=== PATIENT | male | born 1930 | race Caucasian/White ===

== ENCOUNTER 2021-02-17 16:42 | Emergency (ER) | payer MEDICARE ==
[~2021-02-17 16:42] MED LIST: ROPIVACAINE 5MG/ML 20ML VIAL ONE; SODIUM CHLORIDE 0.9% 100 ML BAG ONE; fentaNYL (PF) 50 MCG/ML 5 ML AMP ONE
[2021-02-17] MEDS ORDERED: SODIUM CHLORIDE 0.9% 500 ML 500 ML IV ONE ×2 (17:19→19:12)
[2021-02-17] MEDS ORDERED: PANTOPRAZOLE 40 MG/10 ML VIAL IVP STA (17:19)
[2021-02-17] MEDS ORDERED: GLUCAGON 1 MG/ML VIAL IVP STA (17:21)
[2021-02-17] MEDS ORDERED: DIAZEPAM 5 MG/ML 2 ML INJ IVP STA (17:21)
[2021-02-17 17:53] LABS: Basophils % (A) 1 %; Eosinophils % (A) 0 %; HCT 41.5 % (39.0-53.0); HGB 13.9 gm/dL (13.0-17.5); Lymphocytes # (A) 1.1 k/uL (1.0-4.8); Lymphocytes % (A) 14 %; MCH 29.8 pg (25.0-35.0); MCHC 33.5 g/dL (31.0-37.0); MCV 88.9 fL (80.0-100.0); Mean Platelet Volume 8.7; Monocytes # (A) 0.2 k/uL (0-1.0); Monocytes % (A) 3 %; Neutrophils # (A) 6.5 k/uL (1.3-7.7); Neutrophils % (A) 83 %; Platelet Count 146 k/uL (150-450); RBC 4.66 m/uL (4.30-5.90); RDW 13.1 % (11.5-15.5); WBC 7.9 k/uL (3.8-10.6)
[2021-02-17 18:13] LABS: Albumin 3.9 g/dL (3.5-5.0); Calcium 9.5 mg/dL (8.4-10.2); Potassium 4.2 mmol/L (3.5-5.1); Total Bilirubin 0.8 mg/dL (0.2-1.3); Total Protein 7.1 g/dL (6.3-8.2)
--- NOTE | 2021-02-17 18:26 | ED ---
"General Adult HPI - General Chief complaint: ENT Stated complaint: Food stuck in throat Time Seen by Provider: 02/17/21 17:09 Source: patient, family, RN notes reviewed, old records reviewed Mode of arrival: wheelchair Limitations: no limitations - History of Present Illness Initial comments: 89-year-old male presenting with suspected esophageal foreign body. Patient had been eating pork yesterday evening around 6 PM. He had a piece of pork stuck in his throat. He was unable to drink at that time. He had a previous episode similar to this approximately 10 years ago. He reports he has never had endoscopy before. No history of cancer. Patient continues to be unable to swallow any liquids for the past 24 hours. No dyspnea. - Related Data Home Medications Medication Instructions Recorded Confirmed ALPRAZolam [Xanax] 0.5 mg PO TID 02/17/21 02/17/21 Sertraline [Zoloft] 150 mg PO DAILY 02/17/21 02/17/21 Allergies Allergy/AdvReac Type Severity Reaction Status Date / Time Iodinated Contrast Media Allergy Unknown Verified 02/17/21 18:45 Review of Systems ROS Statement: Those systems with pertinent positive or pertinent negative responses have been documented in the HPI. ROS Other: All systems not noted in ROS Statement are negative. Past Medical History Past Medical History: No Reported History Past Surgical History: No Surgical Hx Reported Smoking Status: Former smoker Past Alcohol Use History: None Reported Past Drug Use History: None Reported General Exam Limitations: no limitations General appearance: alert, in no apparent distress Head exam: Present: atraumatic, normocephalic Eye exam: Present: normal appearance, PERRL ENT exam: Present: normal exam Neck exam: Present: normal inspection. Absent: tenderness, meningismus Respiratory exam: Present: normal lung sounds bilaterally. Absent: respiratory distress, wheezes, stridor Cardiovascular Exam: Present: regular rate, normal rhythm GI/Abdominal exam: Present: soft. Absent: distended, tenderness, guarding Extremities exam: Present: normal inspection, normal capillary refill. Absent: pedal edema Neurological exam: Present: alert, oriented X3, CN II-XII intact. Absent: motor sensory deficit Psychiatric exam: Present: normal affect, normal mood Skin exam: Present: warm, dry, intact. Absent: cyanosis, diaphoretic Course Vital Signs 02/17/21 02/17/21 02/17/21 16:51 18:55 19:55 Temperature 98.7 F Pulse Rate 75 79 70 Respiratory 19 16 18 Rate Blood Pressure 130/69 173/74 175/114 O2 Sat by Pulse 92 L 93 L 96 Oximetry - Reevaluation(s) Reevaluation #1: 02/17/21 18:15 I did discuss case with Dr. Sánchez, and for general surgery, he does not perform endoscopy for esophageal foreign body. He recommended that Dr. Davidson be contac ema, I was able to contact Dr. Davidson and she is able to evaluate the patient, plan for endoscopy for esophageal foreign body at this time. Medical Decision Making - Medical Decision Making 89-year-old male with esophageal foreign body. Management is unsuccessful. I did discuss case with Dr. Davidson who is able to perform urgent endoscopy in the emergency department with successful removal of esophageal foreign body. The patient is awake and alert on reevaluation, eager for discharge. He is drinking ice tea.| - Lab Data Result diagrams: 02/17/21 17:34 02/17/21 17:34 Lab Results 02/17/21 02/17/21 Range/Units 17:34 17:34 WBC 7.9 (3.8-10.6) k/uL RBC 4.66 (4.30-5.90) m/uL Hgb 13.9 (13.0-17.5) gm/dL Hct 41.5 (39.0-53.0) % MCV 88.9 (80.0-100.0) fL MCH 29.8 (25.0-35.0) pg MCHC 33.5 (31.0-37.0) g/dL RDW 13.1 (11.5-15.5) % Plt Count 146 L (150-450) k/uL MPV 8.7 Neutrophils % 83 % Lymphocytes % 14 % Monocytes % 3 % Eosinophils % 0 % Basophils % 1 % Neutrophils # 6.5 (1.3-7.7) k/uL Lymphocytes # 1.1 (1.0-4.8) k/uL Monocytes # 0.2 (0-1.0) k/uL Eosinophils # 0.0 (0-0.7) k/uL Basophils # 0.0 (0-0.2) k/uL Sodium 139 (137-145) mmol/L Potassium 4.2 (3.5-5.1) mmol/L Chloride 105 (98-107) mmol/L Carbon Dioxide 24 (22-30) mmol/L Anion Gap 10 mmol/L BUN 32 H (9-20) mg/dL Creatinine 1.26 H (0.66-1.25) mg/dL Est GFR (CKD-EPI)AfAm 58 (>60 ml/min/1.73 sqM) Est GFR (CKD-EPI)NonAf 50 (>60 ml/min/1.73 sqM) Glucose 134 H (74-99) mg/dL Calcium 9.5 (8.4-10.2) mg/dL Total Bilirubin 0.8 (0.2-1.3) mg/dL AST 19 (17-59) U/L ALT 11 (4-49) U/L Alkaline Phosphatase 97 (38-126) U/L Total Protein 7.1 (6.3-8.2) g/dL Albumin 3.9 (3.5-5.0) g/dL Disposition Clinical Impression: Esophageal foreign body Disposition: HOME SELF-CARE Condition: Good Instructions (If sedation given, give patient instructions): Esophageal Stricture (ED), Esophageal Foreign Body (ED) Is patient prescribed a controlled substance at d/c from ED?: No Referrals: Emanuel Berry DO [Primary Care Provider] - 1-2 days Ryanne Davidson DO [Doctor of Osteopathic Medicine] - 1-2 days Time of Disposition: 20:12"
[2021-02-17] MEDS ORDERED: PROPOFOL 10 MG/ML 20 ML VIAL IV ONE ×2 (19:10)
--- NOTE | 2021-02-17 19:42 | P.PCN ---
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 He has work or some sort of food lodged in his upper neck Description of Procedure: Patient's given IV sedation. A gastroscope was then passed per mouth into the proximal esophagus. There is little secretions in the pharynx which are easily aspirated. There is a whitish food bolus stuck in the proximal esophagus which is removed in a piecemeal manner using a Michelle net. To be a stricture with inflammation there. When enough material was removed the remainder was able to be advanced into the stomach. The stomach and distal esophagus appeared unremarkable. The upper esophagus was without evidence of bleeding were the inflammation was. The scope was withdrawn. He'll be on a soft diet. He's never EGD with possible esophageal dilation in 2-4 weeks as an elective or seizure. This was discussed with the son
[2021-02-17 20:10] VITALS: RESP 18
[2021-02-17 20:50] VITALS: BP 164/83; PULSE 77; TEMP 97.8
== END 2021-02-17 20:48 | disposition home or self-care (01) ==
LOC: EC 16:42
DX: T18.128A Food in esophagus causing other injury, initial encounter (principal); Z87.891 Personal history of nicotine dependence; W45.8XXA Other foreign body or object entering through skin, initial encounter
CPT/HCPCS: 99284 ×2; 96374 ×2; 96375 ×3; 96361 ×4; 36415; 80053; 85025; 43247; J1610; J3360; J3010; J2704; C9113; J2795

== ENCOUNTER 2021-03-19 12:31 | Day surgery (SDC) | payer MEDICARE ==
[2021-03-15 14:50] VITALS: BMI 25.7
[~2021-03-19 12:31] MED LIST changes: +LACTATED RINGERS 1,000 ML IV SCH; +LIDOCAINE 1% (10MG/ML) FOR IV START INTRADERMA PRN; -ROPIVACAINE 5MG/ML 20ML VIAL ONE; -SODIUM CHLORIDE 0.9% 100 ML BAG ONE; -fentaNYL (PF) 50 MCG/ML 5 ML AMP ONE
[2021-03-19 13:00] VITALS: TEMP 97.5
--- NOTE | 2021-03-19 13:00 | P.GSHP ---
History of Present Illness H&P Date: 03/19/21 The patient is an 89-year-old man with history of recurrent dysphagia. He had had EGD with removal of foreign body from the esophagus several weeks ago. At hat time there was some ulceration. I recommended EGD to look for evidence of stricturing. - Review of Systems All systems: negative Past Medical History Past Medical History: Myocardial Infarction ([place]) Additional Past Medical History / Comment(s): recent food stuck in throat came to hospital was removed. frequent falls Last Myocardial Infarction Date:: unknown History of Any Multi-Drug Resistant Organisms: None Reported Past Surgical History: Joint Replacement Additional Past Surgical History / Comment(s): knee replacement Past Anesthesia/Blood Transfusion Reactions: Unable to Obtain Smoking Status: Former smoker Medications and Allergies Home Medications Medication Instructions Recorded Confirmed Type ALPRAZolam [Xanax] 0.5 mg PO TID 02/17/21 03/15/21 History Sertraline [Zoloft] 150 mg PO DAILY 02/17/21 03/15/21 History Allergies Allergy/AdvReac Type Severity Reaction Status Date / Time Iodinated Contrast Media Allergy Unknown Verified 03/19/21 12:58 Surgical - Exam Osteopathic Statement: *. No significant issues noted on an osteopathic structural exam other than those noted in the History and Physical/Consult. - General Age-appropriate well developed, well nourished, no distress - Respiratory normal respiratory effort - Abdomen Abdomen: soft, non tender, bowel sounds Assessment and Plan (1) Dysphasia Current Visit: Yes Status: Acute Code(s): R47.02 - DYSPHASIA SNOMED Code(s): 53846308 Plan: Patient will undergo an EGD with possible esophageal dilation if there is evidence of stricturing. The procedure, risks and complications were discussed. Questions were encouraged and answered.
[2021-03-19] MEDS ORDERED: LIDOCAINE 1% INJ 10MG/ML (20 ML MDV) ONE (13:09)
[2021-03-19] MEDS ORDERED: PROPOFOL 10 MG/ML 20 ML VIAL IV ONE (13:09)
--- NOTE | 2021-03-19 13:27 | P.PCN ---
Date of Procedure: 03/19/21 Preoperative Diagnosis: Dysphagia, history of esophageal foreign body Postoperative Diagnosis: Dysphagia, history of esophageal foreign body, upper esophageal stricture, mild erosive esophagitis Procedure(s) Performed: EGD with esophageal dilation Anesthesia: MAC Surgeon: Ryanne Davidson Pathology: none sent Condition: stable Disposition: PACU Indications for Procedure: The patient has a long history of dysphagia and had an esophageal foreign body removed several weeks ago Description of Procedure: Patient's taken to the endoscopy suite were gastroscope is passed per mouth to the third and fourth portions of the duodenum. Pharynx is unremarkable. There is a bit of a upper esophageal sphincter stricture along with a very small diverticulum. At the GE junction there is noted to be a little bit of esophagitis, the esophagitis is much improved from previous endoscopy. The stomach, pylorus and duodenum were without evidence of polyp mass lesion, other mucosal abnormality. The scope was then withdrawn into the esophagus. A balloon dilator was then passed through the biopsy port the endoscope. The balloon was allowed to traverse the upper esophageal sphincter. He's been progressively dilated to 18 mm. At that point there some linear tearing noted with no active bleeding. He tolerated the procedure without difficulty and was taken to recovery room in satisfactory condition. Plan - Discharge Summary Discharge Rx Participant: No New Discharge Prescriptions: New Omeprazole 20 mg PO QAM #90 cap No Action ALPRAZolam [Xanax] 0.5 mg PO TID Sertraline [Zoloft] 150 mg PO DAILY Discharge Medication List ALPRAZolam [Xanax] 0.5 mg PO TID 02/17/21 [History] Sertraline [Zoloft] 150 mg PO DAILY 02/17/21 [History] Omeprazole 20 mg PO QAM #90 cap 03/19/21 [Rx] Discharge Disposition: HOME SELF-CARE
[2021-03-19 14:04] VITALS: BP 155/79; PULSE 55; RESP 16
== END 2021-03-19 14:20 | disposition home or self-care (01) ==
LOC: ORWHC2ENDO 12:31
PROVIDERS: ATTEND Surgery
DX: K22.2 Esophageal obstruction (principal); K22.10 Ulcer of esophagus without bleeding; Q39.6 Congenital diverticulum of esophagus; I25.2 Old myocardial infarction; R29.6 Repeated falls; F41.9 Anxiety disorder, unspecified; F32.A Depression, unspecified; Z96.659 Presence of unspecified artificial knee joint; Z87.891 Personal history of nicotine dependence; Z79.899 Other long term (current) drug therapy; Z91.041 Radiographic dye allergy status
CPT/HCPCS: 43249; J2001; J2704; C1726

== ENCOUNTER 2021-04-28 14:57 | Inpatient (IN) | payer MEDICARE ==
[2021-04-28] MEDS ORDERED: SODIUM CHLORIDE 0.9% 1,000 ML IV STA (15:28)
--- NOTE | 2021-04-28 15:50 | ED ---
General Adult HPI - General Chief complaint: Fall Stated complaint: Fall Time Seen by Provider: 04/28/21 15:23 Source: EMS Mode of arrival: EMS Limitations: altered mental status - History of Present Illness Initial comments: 89-year-old male presents to the emergency room for a chief complaint of weakness. Patient has been weak for the past several days. States that he had a fall a few days ago because of this weakness. Isn't able to walk at home. He lives with a caregiver. Patient has no other complaints at this time including shortness of breath, chest pain, abdominal pain, nausea or vomiting, headache, or visual changes. - Related Data Home Medications Medication Instructions Recorded Confirmed ALPRAZolam [Xanax] 0.5 mg PO TID 02/17/21 03/19/21 Sertraline [Zoloft] 150 mg PO DAILY 02/17/21 03/19/21 Previous Rx's Medication Instructions Recorded Omeprazole 20 mg PO QAM #90 cap 03/19/21 Allergies Allergy/AdvReac Type Severity Reaction Status Date / Time Iodinated Contrast Media Allergy Unknown Verified 04/28/21 15:09 Review of Systems ROS Statement: Those systems with pertinent positive or pertinent negative responses have been documented in the HPI. ROS Other: All systems not noted in ROS Statement are negative. Past Medical History Past Medical History: Myocardial Infarction ([place]) Additional Past Medical History / Comment(s): recent food stuck in throat came to hospital was removed. frequent falls Last Myocardial Infarction Date:: unknown History of Any Multi-Drug Resistant Organisms: None Reported Past Surgical History: Joint Replacement Additional Past Surgical History / Comment(s): knee replacement Past Anesthesia/Blood Transfusion Reactions: Unable to Obtain Past Psychological History: Anxiety, Depression Smoking Status: Former smoker Past Alcohol Use History: None Reported Past Drug Use History: None Reported General Exam Limitations: altered mental status General appearance: alert, in no apparent distress Head exam: Present: atraumatic Eye exam: Present: normal appearance, PERRL, EOMI. Absent: scleral icterus, conjunctival injection, nystagmus ENT exam: Present: normal exam, mucous membranes moist Neck exam: Present: normal inspection, full ROM. Absent: tenderness Respiratory exam: Present: normal lung sounds bilaterally. Absent: respiratory distress, wheezes Cardiovascular Exam: Present: regular rate, normal rhythm, normal heart sounds GI/Abdominal exam: Present: soft, normal bowel sounds. Absent: distended, tenderness Rectal exam: Present: other (Patient has bedsores noted to his bottom.) Neurological exam: Present: alert Course Vital Signs 04/28/21 15:09 Temperature 99.2 F Pulse Rate 83 Respiratory 20 Rate Blood Pressure 117/72 O2 Sat by Pulse 95 Oximetry EKG Findings - EKG Comments: EKG Findings:: Sinus rhythm, ventricular rate 81, UT interval 248, QTC 441 Medical Decision Making - Medical Decision Making Vitals are stable. Patient is well appearing although somewhat confused. CBC is unremarkable. CMP does show significant dehydration. According to family patient has been refusing to eat and drink. Urinalysis does show evidence of infection, treated with Rocephin.. EKG does not show any evidence of ST elevation however troponin is elevated at 0.26. Patient is not complaining of any chest pain at this time. Patient was given aspirin. We will trend his troponin however given his recent fall and no chest pain or ST elevation we will not start heparin. Patient will be admitted to medicine. - Lab Data Result diagrams: 04/28/21 15:54 04/28/21 15:54 Lab Results 04/28/21 04/28/21 04/28/21 Range/Units 15:54 15:54 15:54 WBC 3.1 L (3.8-10.6) k/uL RBC 4.97 (4.30-5.90) m/uL Hgb 14.7 (13.0-17.5) gm/dL Hct 43.5 (39.0-53.0) % MCV 87.6 (80.0-100.0) fL MCH 29.7 (25.0-35.0) pg MCHC 33.9 (31.0-37.0) g/dL RDW 14.3 (11.5-15.5) % Plt Count 115 L (150-450) k/uL MPV 8.8 Neutrophils % 55 % Lymphocytes % 36 % Monocytes % 6 % Eosinophils % 0 % Basophils % 0 % Neutrophils # 1.7 (1.3-7.7) k/uL Lymphocytes # 1.1 (1.0-4.8) k/uL Monocytes # 0.2 (0-1.0) k/uL Eosinophils # 0.0 (0-0.7) k/uL Basophils # 0.0 (0-0.2) k/uL PT 12.0 (9.0-12.0) sec INR 1.1 (<1.2) APTT 34.1 H (22.0-30.0) sec Sodium (137-145) mmol/L Potassium (3.5-5.1) mmol/L Chloride (98-107) mmol/L Carbon Dioxide (22-30) mmol/L Anion Gap mmol/L BUN (9-20) mg/dL Creatinine (0.66-1.25) mg/dL Est GFR (CKD-EPI)AfAm (>60 ml/min/1.73 sqM) Est GFR (CKD-EPI)NonAf (>60 ml/min/1.73 sqM) Glucose (74-99) mg/dL Plasma Lactic Acid Familia (0.7-2.0) mmol/L Calcium (8.4-10.2) mg/dL Magnesium (1.6-2.3) mg/dL Total Bilirubin (0.2-1.3) mg/dL AST (17-59) U/L ALT (4-49) U/L Alkaline Phosphatase (38-126) U/L Troponin I (0.000-0.034) ng/mL Total Protein (6.3-8.2) g/dL Albumin (3.5-5.0) g/dL Urine Color Yellow Urine Appearance Clear (Clear) Urine pH 6.0 (5.0-8.0) Ur Specific [place] 1.015 (1.001-1.035) Urine Protein Trace H (Negative) Urine Glucose (UA) Negative (Negative) Urine Ketones Negative (Negative) Urine Blood Moderate H (Negative) Urine Nitrite Positive (Negative) Urine Bilirubin Negative (Negative) Urine Urobilinogen <2.0 (<2.0) mg/dL Ur Leukocyte Esterase Trace H (Negative) Urine RBC 8 H (0-5) /hpf Urine WBC 17 H (0-5) /hpf Urine Bacteria Rare H (None) /hpf Hyaline Casts 3 H (0-2) /lpf 04/28/21 04/28/21 04/28/21 Range/Units 15:54 15:54 15:54 WBC (3.8-10.6) k/uL RBC (4.30-5.90) m/uL Hgb (13.0-17.5) gm/dL Hct (39.0-53.0) % MCV (80.0-100.0) fL MCH (25.0-35.0) pg MCHC (31.0-37.0) g/dL RDW (11.5-15.5) % Plt Count (150-450) k/uL MPV Neutrophils % % Lymphocytes % % Monocytes % % Eosinophils % % Basophils % % Neutrophils # (1.3-7.7) k/uL Lymphocytes # (1.0-4.8) k/uL Monocytes # (0-1.0) k/uL Eosinophils # (0-0.7) k/uL Basophils # (0-0.2) k/uL PT (9.0-12.0) sec INR (<1.2) APTT (22.0-30.0) sec Sodium 143 (137-145) mmol/L Potassium 3.4 L (3.5-5.1) mmol/L Chloride 107 (98-107) mmol/L Carbon Dioxide 25 (22-30) mmol/L Anion Gap 11 mmol/L BUN 63 H (9-20) mg/dL Creatinine 1.61 H (0.66-1.25) mg/dL Est GFR (CKD-EPI)AfAm 43 (>60 ml/min/1.73 sqM) Est GFR (CKD-EPI)NonAf 38 (>60 ml/min/1.73 sqM) Glucose 117 H (74-99) mg/dL Plasma Lactic Acid Familia 1.8 (0.7-2.0) mmol/L Calcium 9.1 (8.4-10.2) mg/dL Magnesium 2.1 (1.6-2.3) mg/dL Total Bilirubin 0.5 (0.2-1.3) mg/dL AST 84 H (17-59) U/L ALT 32 (4-49) U/L Alkaline Phosphatase 80 (38-126) U/L Troponin I 0.206 H* (0.000-0.034) ng/mL Total Protein 6.9 (6.3-8.2) g/dL Albumin 3.7 (3.5-5.0) g/dL Urine Color Urine Appearance (Clear) Urine pH (5.0-8.0) Ur Specific [place] (1.001-1.035) Urine Protein (Negative) Urine Glucose (UA) (Negative) Urine Ketones (Negative) Urine Blood (Negative) Urine Nitrite (Negative) Urine Bilirubin (Negative) Urine Urobilinogen (<2.0) mg/dL Ur Leukocyte Esterase (Negative) Urine RBC (0-5) /hpf Urine WBC (0-5) /hpf Urine Bacteria (None) /hpf Hyaline Casts (0-2) /lpf Disposition Clinical Impression: Weakness, Failure to thrive, Elevated troponin, Bed sore, Unable to ambulate, Dehydration Disposition: ADMITTED IP TO THIS HOSP Is patient prescribed a controlled substance at d/c from ED?: No Referrals: Emanuel Berry DO [Primary Care Provider] - 1-2 days Time of Disposition: 17:09
[2021-04-28 16:02] LABS: Basophils % (A) 0 %; Eosinophils % (A) 0 %; HCT 43.5 % (39.0-53.0); HGB 14.7 gm/dL (13.0-17.5); Lymphocytes # (A) 1.1 k/uL (1.0-4.8); Lymphocytes % (A) 36 %; MCH 29.7 pg (25.0-35.0); MCHC 33.9 g/dL (31.0-37.0); MCV 87.6 fL (80.0-100.0); Mean Platelet Volume 8.8; Monocytes # (A) 0.2 k/uL (0-1.0); Monocytes % (A) 6 %; Neutrophils # (A) 1.7 k/uL (1.3-7.7); Neutrophils % (A) 55 %; Platelet Count 115 k/uL (150-450); RBC 4.97 m/uL (4.30-5.90); RDW 14.3 % (11.5-15.5); WBC 3.1 k/uL (3.8-10.6)
[2021-04-28 16:05] LABS: Appearance,Urine Clear (Clear); Bacteria,Urine Rare /hpf; Bilirubin,Urine Negative (Negative); Blood,Urine Moderate (Negative); Color,Urine Yellow; Glucose,Urine (UA) Negative (Negative); Hyaline Casts,Urine 3 /lpf (0-2); Ketones,Urine Negative (Negative); Leukocyte Esterase,Urine Trace (Negative); Nitrite,Urine Positive (Negative); Protein,Urine Trace (Negative); RBC,Urine 8 /hpf (0-5); Specific Gravity,Urine 1.015 (1.001-1.035); Urobilinogen,Urine <2.0 mg/dL (<2.0); WBC,Urine 17 /hpf (0-5)
[2021-04-28 16:20] LABS: Albumin 3.7 g/dL (3.5-5.0); Calcium 9.1 mg/dL (8.4-10.2); Magnesium 2.1 mg/dL (1.6-2.3); Potassium 3.4 mmol/L (3.5-5.1); Total Bilirubin 0.5 mg/dL (0.2-1.3); Total Protein 6.9 g/dL (6.3-8.2)
[2021-04-28 16:23] LABS: INR 1.1 (<1.2); Partial Thromboplastin Time 34.1 sec (22.0-30.0)
--- NOTE | 2021-04-28 16:33 | XR ---
EXAMINATION TYPE: XR pelvis AP view DATE OF EXAM: 04/28/2021 COMPARISON: NONE HISTORY: Pain TECHNIQUE: 2 view FINDINGS: Pelvic ring is intact. Proximal femurs and hip joints are intact but sacroiliac joints are intact. IMPRESSION: Negative pelvis x-ray exam.
--- NOTE | 2021-04-28 16:35 | XR ---
EXAMINATION TYPE: XR chest 2V DATE OF EXAM: 04/28/2021 COMPARISON: NONE HISTORY: Weakness TECHNIQUE: 2 views FINDINGS: Heart is normal. Thoracic aorta is atheromatous. Lungs are clear of consolidation. There ar e no hilar masses. There are chest leads. There is no pleural effusion. Bony thorax is intact. IMPRESSION: Atheromatous aorta. No active cardiopulmonary disease.
[2021-04-28] MEDS ORDERED: ASPIRIN 81 MG PO STA (17:00)
[2021-04-28] MEDS ORDERED: NITROGLYCERIN SL TABS 0.4 MG TAB SUBLINGUAL PRN (17:14)
[2021-04-28] MEDS ORDERED: cefTRIAXone IN SWFI 1,000 MG/10 ML SYRINGE IVP STA (17:18)
[2021-04-28] MEDS ORDERED: ACETAMINOPHEN TAB 325 MG TAB PO PRN (17:19)
[2021-04-28 19:00] LABS: C Reactive Protein 4.1 mg/dL (<1.0)
--- NOTE | 2021-04-28 19:04 | P.HPIM ---
History of Present Illness H&P Date: 04/28/21 Chief Complaint: Fall/weakness 89-year-old male presents to the emergency room for a chief complaint of weakness. Patient has been weak for the past several days. States that he had a fall a few days ago because of this weakness. Isn't able to walk at home. He lives with a caregiver. Patient has no other complaints at this time including shortness of breath, chest pain, abdominal pain, nausea or vomiting, headache, or visual changes. CBC is unremarkable. CMP does show significant dehydration. According to family patient has been refusing to eat and drink. Urinalysis does show evidence of infection, treated with Rocephin.. EKG does not show any evidence of ST elevation however troponin is elevated at 0.26. Review of Systems REVIEW OF SYSTEMS: CONSTITUTIONAL: No fever, no malaise, no fatigue. HEENT: No recent visual problems or hearing problems. Denied any sore throat. CARDIOVASCULAR: No chest pain, orthopnea, PND, no palpitations, no syncope. PULMONARY: No shortness of breath, no cough, no hemoptysis. GASTROINTESTINAL: No diarrhea, no nausea, no vomiting, no abdominal pain. NEUROLOGICAL: No headaches, no weakness, no numbness. HEMATOLOGICAL: Denies any bleeding or petechiae. GENITOURINARY: Denies any burning micturition, frequency, or urgency. MUSCULOSKELETAL/RHEUMATOLOGICAL: Denies any joint pain, swelling, or any muscle pain. ENDOCRINE: Denies any polyuria or polydipsia. The rest of the 14-point review of systems is negative. Past Medical History Past Medical History: Myocardial Infarction ([place]) Additional Past Medical History / Comment(s): recent food stuck in throat came to hospital was removed. frequent falls Last Myocardial Infarction Date:: unknown History of Any Multi-Drug Resistant Organisms: None Reported Past Surgical History: Joint Replacement Additional Past Surgical History / Comment(s): knee replacement Past Anesthesia/Blood Transfusion Reactions: Unable to Obtain Past Psychological History: Anxiety, Depression Smoking Status: Former smoker Past Alcohol Use History: None Reported Past Drug Use History: None Reported Medications and Allergies Home Medications Medication Instructions Recorded Confirmed Type ALPRAZolam [Xanax] 0.5 mg PO TID 02/17/21 03/19/21 History Sertraline [Zoloft] 150 mg PO DAILY 02/17/21 03/19/21 History Omeprazole 20 mg PO QAM #90 cap 03/19/21 Rx Allergies Allergy/AdvReac Type Severity Reaction Status Date / Time Iodinated Contrast Media Allergy Unknown Verified 04/28/21 15:09 Physical Exam Vitals: Vital Signs Temp Pulse Resp BP Pulse Ox 04/28/21 18:00 89 20 154/82 92 L 04/28/21 15:09 99.2 F 83 20 117/72 95 Intake and Output 04/28/21 04/28/21 04/28/21 06:59 14:59 22:59 Other: Weight 49.895 kg PHYSICAL EXAMINATION: GENERAL: The patient is alert and oriented x3, not in any acute distress. Well developed, well nourished. HEENT: Pupils are round and equally reacting to light. EOMI. No scleral icterus. No conjunctival pallor. Normocephalic, atraumatic. No pharyngeal erythema. No thyromegaly. CARDIOVASCULAR: S1 and S2 present. No murmurs, rubs, or gallops. PULMONARY: Chest is clear to auscultation, no wheezing or crackles. ABDOMEN: Soft, nontender, nondistended, normoactive bowel sounds. No palpable organomegaly. MUSCULOSKELETAL: No joint swelling or deformity. EXTREMITIES: No cyanosis, clubbing, or pedal edema. NEUROLOGICAL: Gross neurological examination did not reveal any focal deficits. SKIN: No rashes. Results CBC & Chem 7: 04/28/21 15:54 04/28/21 15:54 Labs: Abnormal Lab Results - Last 24 Hours (Table) 04/28/21 04/28/21 04/28/21 Range/Units 15:54 15:54 15:54 WBC 3.1 L (3.8-10.6) k/uL Plt Count 115 L (150-450) k/uL APTT 34.1 H (22.0-30.0) sec Potassium (3.5-5.1) mmol/L BUN (9-20) mg/dL Creatinine (0.66-1.25) mg/dL Glucose (74-99) mg/dL AST (17-59) U/L Troponin I (0.000-0.034) ng/mL Urine Protein Trace H (Negative) Urine Blood Moderate H (Negative) Ur Leukocyte Esterase Trace H (Negative) Urine RBC 8 H (0-5) /hpf Urine WBC 17 H (0-5) /hpf Urine Bacteria Rare H (None) /hpf Hyaline Casts 3 H (0-2) /lpf Coronavirus (PCR) (Not Detectd) 04/28/21 04/28/21 04/28/21 Range/Units 15:54 15:54 16:50 WBC (3.8-10.6) k/uL Plt Count (150-450) k/uL APTT (22.0-30.0) sec Potassium 3.4 L (3.5-5.1) mmol/L BUN 63 H (9-20) mg/dL Creatinine 1.61 H (0.66-1.25) mg/dL Glucose 117 H (74-99) mg/dL AST 84 H (17-59) U/L Troponin I 0.206 H* (0.000-0.034) ng/mL Urine Protein (Negative) Urine Blood (Negative) Ur Leukocyte Esterase (Negative) Urine RBC (0-5) /hpf Urine WBC (0-5) /hpf Urine Bacteria (None) /hpf Hyaline Casts (0-2) /lpf Coronavirus (PCR) Detected A (Not Detectd) Assessment and Plan Assessment: 1. Elevated troponin rule out acute coronary syndrome; monitor EKG and trend troponin; recommending 2-D echo; consult cardiology 2. Acute renal injury/dehydration; start patient on IV fluids; we will monitor strict CELIA's, daily weights, renal function and electrolytes; avoid nephrotoxins and hypotension 3. Hypokalemia/electrolyte imbalance; supplemented in ED; monitor electrolytes and make further supplementation 4. UTI; Rocephin 1 g IV daily; monitor CBC, CRP and pro-calcitonin; monitor final urine culture and adjust medications as needed 5. Weakness/adult failure to thrive; inability to ambulate - We will consult PT/OT DVT prophylaxis; SCDs/subcu heparin CODE STATUS; full code
[2021-04-28] MEDS: SERTRALINE 50 MG TAB PO SCH (20:15)
[2021-04-28] MEDS: ALPRAZolam 0.5 MG TAB PO SCH (20:15)
[2021-04-29] MEDS ORDERED: cefTRIAXone IN SWFI 1,000 MG/10 ML SYRINGE IVP SCH (09:00)
[2021-04-29] MEDS: ALPRAZolam 0.5 MG TAB PO SCH ×3 (09:14→21:52)
[2021-04-29] MEDS: SERTRALINE 50 MG TAB PO SCH (09:14)
[2021-04-29] MEDS: PANTOPRAZOLE 40 MG TABLET PO SCH (09:15)
[2021-04-29] MEDS: ASPIRIN 325 MG TAB PO SCH (09:15)
[2021-04-29 11:18] LABS: LDL Cholesterol,Calculated 65.3 mg/dL (0.0-131.0)
--- NOTE | 2021-04-29 14:55 | P.CRDCN ---
History of Present Illness Consult date: 04/29/21 History of present illness: Patient is an 89-year-old male with a known history of coronary artery disease myocardial infarction and hyperlipidemia. He does not follow with a environmental sciences professor in the office. We are asked to see him for elevated troponins. Patient was brought in to the hospital by his family, he lives with his son. Patient had increased falls and increased confusion. Patient was found to have a positive urinary tract infection. Patient's troponins positive 3. Elevated troponins are likely related to acute renal failure. Patient has no EKG del angel es. He does have a prior history of an inferior wall infarct. No concern for myocardial infarction Patient is more alert and orientated today and able to answer questions. He denies chest pain, palpitations, dyspnea, dizziness. start Imdur 30 mg daily. We'll start Lopressor 25 twice a day and will obtain an echocardiogram on the patient Review of Systems REVIEW OF SYSTEMS At the time of my exam: CONSTITUTIONAL: Denies fever or chills. EYES: Negative for vision changes ENT: Negative for hearing loss CARDIOVASCULAR: Denies chest pain, shortness of breath, diaphoresis, orthopnea, PND or palpitations. VASCULAR: Denies edema RESPIRATORY: Denies cough. GASTROINTESTINAL: Denies abdominal pain, diarrhea, constipation, nausea or vomiting. MUSCULOSKELETAL: Denies myalgias. NEUROLOGIC: Denies numbness, tingling, headache or weakness. ENDOCRINE: Denies fatigue, weight change, polydipsia or polyurina. GENITOURINARY: Denies burning, hematuria or urgency with micturation. HEMATOLOGIC: Denies history of anemia or bleeding. DERMATOLOGY: Denies rash or skin sores PSYCH: Negative for depression or hallucinations. Past Medical History Past Medical History: Cancer, Hearing Disorder / Deafness, Hyperlipidemia, Myocardial Infarction (CT), Osteoarthritis (OA), Prostate Disorder Additional Past Medical History / Comment(s): recent food stuck in throat came to hospital was removed. frequent falls, prostate cancer Last Myocardial Infarction Date:: unknown History of Any Multi-Drug Resistant Organisms: None Reported Past Surgical History: Joint Replacement Additional Past Surgical History / Comment(s): knee replacement Past Anesthesia/Blood Transfusion Reactions: Unable to Obtain Past Psychological History: Anxiety, Depression Smoking Status: Former smoker Past Alcohol Use History: None Reported Past Drug Use History: None Reported Medications and Allergies Home Medications Medication Instructions Recorded Confirmed Type ALPRAZolam [Xanax] 0.5 mg PO TID 02/17/21 04/28/21 History Sertraline [Zoloft] 150 mg PO DAILY 02/17/21 04/28/21 History Omeprazole 20 mg PO DAILY 04/28/21 04/28/21 History Allergies Allergy/AdvReac Type Severity Reaction Status Date / Time Iodinated Contrast Media Allergy Unknown Verified 04/28/21 18:59 Physical Exam Vitals: Vital Signs Temp Pulse Pulse Resp BP BP BP 04/29/21 12:19 97.8 F 74 17 121/62 04/29/21 09:29 97.9 F 74 17 138/68 04/29/21 04:00 72 18 127/64 04/29/21 00:00 68 18 121/60 04/28/21 20:00 97.8 F 79 18 133/69 04/28/21 18:00 89 20 154/82 04/28/21 15:09 99.2 F 83 20 117/72 Pulse Ox 04/29/21 12:19 92 L 04/29/21 09:29 95 04/29/21 04:00 92 L 04/29/21 00:00 96 04/28/21 20:00 94 L 04/28/21 18:00 92 L 04/28/21 15:09 95 Intake and Output 04/28/21 04/29/21 04/29/21 22:59 06:59 14:59 Intake Total 970 485 200 Output Total 1400 Balance 970 485 -1200 Intake: Oral 970 485 200 Output: Urine 1400 Straight 700 Other: Voiding Method Diaper Diaper Diaper Incontinent Incontinent Incontinent Weight 49.895 kg PHYSICAL EXAMINATION VITAL SIGNS: Reviewed CONSTITUTIONAL: No apparent distress. HEENT: Head is normocephalic. Pupils are equal, round. Sclerae anicteric. Mucous membranes of the mouth are moist. NECK: No JVD. No carotid bruit. RESPIRATORY: Lungs are clear to auscultation. No chest wall tenderness is noted on palpation or with deep breathing. CARDIAC: Regular rate and rhythm. S1, S2 heard. No murmurs, gallops or rub. ABDOMEN: Soft, nontender. EXTREMITIES: 2+ peripheral pulses, no lower extremity edema and no calf tenderness. NEUROLOGIC EXAMINATION: Patient is awake, alert and oriented x3. INTEGUMENTARY: Warm, absent for rashes or sores PSYCH: Negative for depression or hallucinations, mood appropriate. Results 04/28/21 15:54 04/28/21 15:54 Cardiac Enzymes 04/28/21 04/28/21 04/28/21 Range/Units 15:54 15:54 15:54 AST 84 H (17-59) U/L Lactate Dehydrogenase 591 (313-618) U/L Troponin I 0.206 H* (0.000-0.034) ng/mL 04/28/21 04/28/21 Range/Units 20:39 23:45 AST (17-59) U/L Lactate Dehydrogenase (313-618) U/L Troponin I 0.183 H* 0.193 H* (0.000-0.034) ng/mL Coagulation 04/28/21 Range/Units 15:54 PT 12.0 (9.0-12.0) sec APTT 34.1 H (22.0-30.0) sec Lipids 04/29/21 Range/Units 07:57 Triglycerides 131.00 (0.00-149.00) mg/dL Cholesterol 122.00 (0.00-200.00) mg/dL HDL Cholesterol 30.50 L (40.00-60.00) mg/dL Cholesterol/HDL Ratio 4.00 Ratio CBC 04/28/21 Range/Units 15:54 WBC 3.1 L (3.8-10.6) k/uL RBC 4.97 (4.30-5.90) m/uL Hgb 14.7 (13.0-17.5) gm/dL Hct 43.5 (39.0-53.0) % Plt Count 115 L (150-450) k/uL Comprehensive Metabolic Panel 04/28/21 Range/Units 15:54 Sodium 143 (137-145) mmol/L Potassium 3.4 L (3.5-5.1) mmol/L Chloride 107 (98-107) mmol/L Carbon Dioxide 25 (22-30) mmol/L BUN 63 H (9-20) mg/dL Creatinine 1.61 H (0.66-1.25) mg/dL Glucose 117 H (74-99) mg/dL Calcium 9.1 (8.4-10.2) mg/dL AST 84 H (17-59) U/L ALT 32 (4-49) U/L Alkaline Phosphatase 80 (38-126) U/L Total Protein 6.9 (6.3-8.2) g/dL Albumin 3.7 (3.5-5.0) g/dL Current Medications Generic Name Dose Route Start Last Admin Trade Name Freq PRN Reason Stop Dose Admin Acetaminophen 650 mg 04/28/21 17:19 Acetaminophen Tab 325 Mg Tab PO Q4HR PRN Fever>101 Alprazolam 0.5 mg 04/28/21 22:00 04/29/21 09:14 Alprazolam 0.5 Mg Tab PO 0.5 mg TID SIERRA Administration Aspirin 325 mg 04/29/21 09:00 04/29/21 09:15 Aspirin 325 Mg Tab PO 325 mg DAILY SIERRA Administration Ceftriaxone Sodium 1 gm/ 50 mls @ 100 mls/hr 04/29/21 09:00 04/29/21 09:15 Sodium Chloride IVPB 100 mls/hr Q24HR SIERRA Administration Nitroglycerin 0.4 mg 04/28/21 17:14 Nitroglycerin Sl Tabs 0.4 Mg Tab SUBLINGUAL Q5M PRN Chest Pain Pantoprazole Sodium 40 mg 04/29/21 09:00 04/29/21 09:15 Pantoprazole 40 Mg Tablet PO 40 mg DAILY SIERRA Administration Sertraline HCl 150 mg 04/28/21 20:00 04/29/21 09:14 Sertraline 50 Mg Tab PO 150 mg DAILY SIERRA Administration Intake and Output 04/28/21 04/29/21 04/29/21 22:59 06:59 14:59 Intake Total 970 485 200 Output Total 1400 Balance 970 485 -1200 Intake: Oral 970 485 200 Output: Urine 1400 Straight 700 Other: Voiding Method Diaper Diaper Diaper Incontinent Incontinent Incontinent Weight 49.895 kg 04/28/21 15:54 04/28/21 15:54 Assessment and Plan Assessment: Positive troponins likely related to acute renal failure Covid infection Acute renal failure likely related to dehydration History of coronary artery disease Urinary tract infection Increase confusion Failure to thrive Plan: obtain an echocardiogram and review Start Imdur 30 mg daily Start Lopressor 25 mg twice a day Continue with cardiac monitoring Continue with all other current cardiac medications Further recommendations based on clinical course The above impression and plan of care have been discussed and directed by the signing physician. Halina De La Rosa, nurse practitioner, acting as scribe for signing physician.
[2021-04-29] MEDS: ISOSORBIDE MONONITRATE ER 30 MG TAB.ER.24H PO SCH (16:27)
[2021-04-29] MEDS: ENOXAPARIN 30 MG/0.3 ML SYRINGE SQ SCH (16:27)
[2021-04-29] MEDS: ASCORBIC ACID 500 MG TAB PO SCH (16:27)
[2021-04-29] MEDS: CHOLECALCIFEROL 25 MCG (1000 IU) TABLET PO SCH (16:28)
[2021-04-29] MEDS: METOPROLOL TARTRATE 25 MG TAB PO SCH (20:46)
[2021-04-30 09:44] LABS: Basophils % (A) 0 %; Eosinophils % (A) 0 %; HGB 12.8 gm/dL (13.0-17.5); Lymphocytes # (A) 1.1 k/uL (1.0-4.8); Lymphocytes % (A) 37 %; MCH 29.8 pg (25.0-35.0); MCHC 32.8 g/dL (31.0-37.0); MCV 90.8 fL (80.0-100.0); Mean Platelet Volume 8.4; Monocytes # (A) 0.1 k/uL (0-1.0); Monocytes % (A) 3 %; Neutrophils # (A) 1.7 k/uL (1.3-7.7); Neutrophils % (A) 57 %; RDW 15.2 % (11.5-15.5)
[2021-04-30 10:03] LABS: Calcium 8.5 mg/dL (8.4-10.2); Potassium 3.8 mmol/L (3.5-5.1)
[2021-04-30 10:16] LABS: Platelet Count 80 k/uL (150-450)
[2021-04-30 10:17] LABS: RBC Morphology Normal
[2021-04-30] MEDS: CHOLECALCIFEROL 25 MCG (1000 IU) TABLET PO SCH (10:43)
[2021-04-30] MEDS: ALPRAZolam 0.5 MG TAB PO SCH ×3 (10:44→20:23)
[2021-04-30] MEDS: SERTRALINE 50 MG TAB PO SCH (10:44)
[2021-04-30] MEDS: ASCORBIC ACID 500 MG TAB PO SCH ×2 (10:44→20:23)
[2021-04-30] MEDS: PANTOPRAZOLE 40 MG TABLET PO SCH (10:44)
[2021-04-30] MEDS: ISOSORBIDE MONONITRATE ER 30 MG TAB.ER.24H PO SCH (10:44)
[2021-04-30] MEDS: METOPROLOL TARTRATE 25 MG TAB PO SCH ×2 (10:44→20:23)
[2021-04-30] MEDS: ENOXAPARIN 30 MG/0.3 ML SYRINGE SQ SCH (10:45)
[2021-04-30] MEDS: ZINC SULFATE 220 MG CAP PO SCH (10:48)
[2021-04-30] MEDS: TAMSULOSIN 0.4 MG CAP.ER.24H PO SCH (10:48)
--- NOTE | 2021-04-30 11:51 | P.CONS ---
History of Present Illness - Reason for Consult Consult date: 04/30/21 wound care - History of Present Illness This is an 89-year-old patient with a unstageable pressure ulcer to the coccyx been seen on 3 . Patient states that the ulceration has been there for quite a few months. Every time he turns it feels like the area is ripping open. Patient does have some excoriation to the site. The ulceration is measuring approximately 6 6 x 4 x 0.1 cm with eschar noted. Patient would benefit from debridement in an outpatient setting. Review Of Systems: Constitutional: No fever, no chills, no night sweats. No weight change. No weakness, fatigue or lethargy. No daytime sleepiness. Integumentary:reports wounds, no lesions. No rash or pruritus. No unusual bruising. No change in hair or nails. Physical exam: General Appearance: Alert, cooperative, no distress, appears stated age. Skin: See HPI all other Skin color, texture, tugor normal, no rashes or lesions. Neurologic: Alert oriented x3 Assessment: 1. Unstageable pressure ulcer coccyx Plan: 1. Apply honey alginate, saline moistened gauze and sacral border foam. Turn patient every 2 hours. When patient is sitting please utilize a air-filled cushion. Patient would benefit from outpatient advance wound care. We will be happy to see him in the wound care center upon discharge. Thank you for the consultation any questions contact the wound care center DNP note has been reviewed and discussed with Dr. Woo and the impression and plan of care has been directed as dictated. Past Medical History Past Medical History: Cancer, Hearing Disorder / Deafness, Hyperlipidemia, Myocardial Infarction (MS), Osteoarthritis (OA), Prostate Disorder Additional Past Medical History / Comment(s): recent food stuck in throat came to hospital was removed. frequent falls, prostate cancer Last Myocardial Infarction Date:: unknown History of Any Multi-Drug Resistant Organisms: None Reported Past Surgical History: Joint Replacement Additional Past Surgical History / Comment(s): knee replacement Past Anesthesia/Blood Transfusion Reactions: Unable to Obtain Past Psychological History: Anxiety, Depression Smoking Status: Former smoker Past Alcohol Use History: None Reported Past Drug Use History: None Reported Medications and Allergies Home Medications Medication Instructions Recorded Confirmed Type ALPRAZolam [Xanax] 0.5 mg PO TID 02/17/21 04/28/21 History Sertraline [Zoloft] 150 mg PO DAILY 02/17/21 04/28/21 History Omeprazole 20 mg PO DAILY 04/28/21 04/28/21 History Allergies Allergy/AdvReac Type Severity Reaction Status Date / Time Iodinated Contrast Media Allergy Unknown Verified 04/28/21 18:59 Physical Exam Vitals: Vital Signs Temp Pulse Resp BP Pulse Ox 04/30/21 08:49 97.5 F L 67 18 119/59 94 L 04/30/21 08:25 96 04/30/21 04:00 97.8 F 75 16 123/68 95 04/29/21 23:30 98.0 F 74 16 116/62 93 L 04/29/21 20:00 98.1 F 74 16 128/65 94 L 04/29/21 17:15 96 04/29/21 17:11 97.9 F 75 15 136/69 96 04/29/21 12:19 97.8 F 74 17 121/62 92 L Intake and Output 04/29/21 04/30/21 04/30/21 22:59 06:59 14:59 Intake Total 10 Output Total 450 420 Balance -440 -420 Intake: IV 10 Invasive Line 1 10 Output: Urine 450 420 Straight 450 Other: Voiding Method Indwelling Catheter Indwelling Catheter Indwelling Catheter Results CBC & Chem 7: 04/30/21 09:04 04/30/21 09:04 Labs: Abnormal Lab Results - Last 24 Hours (Table) 04/30/21 04/30/21 Range/Units 09:04 09:04 WBC 3.0 L (3.8-10.6) k/uL Hgb 12.8 L (13.0-17.5) gm/dL Plt Count 80 L (150-450) k/uL Sodium 146 H (137-145) mmol/L Chloride 115 H (98-107) mmol/L BUN 34 H (9-20) mg/dL Glucose 110 H (74-99) mg/dL Microbiology - Last 24 Hours (Table) 04/28/21 15:54 Urine Culture - Final Urine,Catheterized 04/28/21 17:35 Blood Culture - Preliminary Blood No Growth after 24 hours 04/28/21 17:20 Blood Culture - Preliminary Blood No Growth after 24 hours Assessment and Plan (1) Unstageable pressure ulcer of buttock Current Visit: Yes Status: Acute Code(s): L89.300 - PRESSURE ULCER OF UNSPECIFIED BUTTOCK, UNSTAGEABLE SNOMED Code(s): 772030612
--- NOTE | 2021-04-30 12:10 | P.PN ---
Subjective Progress Note Date: 04/30/21 CHIEF COMPLAINT: abnormal troponins HISTORY OF PRESENT ILLNESS: 04/29/2021 Patient is an 89-year-old male with a known history of coronary artery disease myocardial infarction and hyperlipidemia. He does not follow with a cushion assembler in the office. We are asked to see him for elevated troponins. Patient was brought in to the hospital by his family, he lives with his son. Patient had increased falls and increased confusion. Patient was found to have a positive urinary tract infection. Patient's troponins positive 3. Elevated troponins are likely related to acute renal failure. Patient has no EKG changes. He does have a prior history of an inferior wall infarct. No concern for myocardial infarction Patient is more alert and orientated today and able to answer questions. He denies chest pain, palpitations, dyspnea, dizziness. start Imdur 30 mg daily. We'll start Lopressor 25 twice a day and will obtain an echocardiogram on the patient PHYSICAL EXAM: Thorough physical exam not completed secondary to limited evaluation/examination due to Covid19 ASSESSMENT: Covid 19 Acute renal failure Abnormal troponins, secondary to SEAN, not suggestive of ACS Urinary tract infection Altered mental status Failure to thrive PLAN: 2D echo ordered. Await results Decrease aspirin to 81mg daily Continue additional cardiac medications Further recommendations pending patient course Nurse practitioner note has been reviewed by physician. Signing provider agrees with the documented findings, assessment, and plan of care. Objective - Vital Signs Vital signs: Vital Signs Temp 98 F 04/30/21 12:01 Pulse 61 04/30/21 12:01 Resp 17 04/30/21 12:01 BP 108/57 04/30/21 12:01 Pulse Ox 92 L 04/30/21 12:01 Intake & Output 04/29/21 04/30/21 04/30/21 18:59 06:59 18:59 Intake Total 200 10 Output Total 1850 420 420 Balance -1650 -410 -420 Intake: IV 10 Invasive Line 1 10 Oral 200 Output: Urine 1850 420 420 Straight 1150 Other: Voiding Method Diaper Indwelling Catheter Indwelling Catheter Incontinent - Labs CBC & Chem 7: 04/30/21 09:04 04/30/21 09:04 Labs: Abnormal Lab Results - Last 24 Hours (Table) 04/30/21 04/30/21 Range/Units 09:04 09:04 WBC 3.0 L (3.8-10.6) k/uL Hgb 12.8 L (13.0-17.5) gm/dL Plt Count 80 L (150-450) k/uL Sodium 146 H (137-145) mmol/L Chloride 115 H (98-107) mmol/L BUN 34 H (9-20) mg/dL Glucose 110 H (74-99) mg/dL Microbiology - Last 24 Hours (Table) 04/28/21 15:54 Urine Culture - Final Urine,Catheterized 04/28/21 17:35 Blood Culture - Preliminary Blood No Growth after 24 hours 04/28/21 17:20 Blood Culture - Preliminary Blood No Growth after 24 hours
[2021-04-30] MEDS: ASPIRIN 325 MG TAB PO SCH (12:47)
[2021-04-30] MEDS ORDERED: ALBUTEROL HFA INHALER INHALATION PRN (13:36)
[2021-04-30] MEDS ORDERED: DEXAMETHASONE SOD PHOSPHATE 10 MG/ML 1 ML VIAL IVP SCH (14:00)
--- NOTE | 2021-04-30 14:00 | P.PN ---
Subjective Progress Note Date: 04/30/21 This is an 89-year-old gentleman admitted with acute covid infection,elevated troponins, acute renal failure, hypokalemia, generalized weakness and multiple other medical issues. Patient also has a history of esophageal obstruction ,scheduled for swallow evaluation as per speech therapy. Guzman catheter had been inserted for urinary retention. Sitting up in bed, consumed about 40% of breakfast. Ill fitting dentures, currently out of his mouth. Maintained on IV antibiotics of ceftriaxone, Covid cocktail, pleasantly confused with significant weakness. Renal function improving with creatinine decreased to 0.98. Evaluated by cardiology, recommendations noted, echo pending. Telemetry reported sinus r hythm. Afebrile, WBC 3. Maintaining O2 sats in the low 90s on room air. Objective - Vital Signs Vital signs: Vital Signs Temp 98 F 04/30/21 12:01 Pulse 61 04/30/21 12:01 Resp 17 04/30/21 12:01 BP 108/57 04/30/21 12:01 Pulse Ox 92 L 04/30/21 12:01 Intake & Output 04/29/21 04/30/21 04/30/21 18:59 06:59 18:59 Intake Total 200 10 120 Output Total 1850 420 420 Balance -1650 -410 -300 Intake: IV 10 Invasive Line 1 10 Oral 200 120 Output: Urine 1850 420 420 Straight 1150 Other: Voiding Method Diaper Indwelling Catheter Indwelling Catheter Incontinent - Exam PHYSICAL EXAM: VITAL SIGNS: [As above] GENERAL: Sitting up in bed, eating breakfast, pleasantly confused, weak HEENT: Conjunctivae normal. eyes normal. Oral mucosa moist NECK: Supple, No JVD. CARDIOVASCULAR: S1, S2 regular. No murmur. RESPIRATION: Breath sounds diminished in the bases. No rhonchi or crackles. ABDOMEN: Soft, nontender . No guarding. no masses palpable. Positive Bowel sounds. LEGS: No edema. no swelling PSYCHIATRY: Alert and oriented X2, mood and affect normal. NERVOUS SYSTEM: Limited exam -Cranial N 2-12 grossly normal. Diffuse weakness No focal deficits. Skin: Unstageable coccyx pressure ulcer with eschar, refer to sizing documented per wound care team. - Labs CBC & Chem 7: 04/30/21 09:04 04/30/21 09:04 Labs: Abnormal Lab Results - Last 24 Hours (Table) 04/30/21 04/30/21 Range/Units 09:04 09:04 WBC 3.0 L (3.8-10.6) k/uL Hgb 12.8 L (13.0-17.5) gm/dL Plt Count 80 L (150-450) k/uL Sodium 146 H (137-145) mmol/L Chloride 115 H (98-107) mmol/L BUN 34 H (9-20) mg/dL Glucose 110 H (74-99) mg/dL Microbiology - Last 24 Hours (Table) 04/28/21 15:54 Urine Culture - Final Urine,Catheterized 04/28/21 17:35 Blood Culture - Preliminary Blood No Growth after 24 hours 04/28/21 17:20 Blood Culture - Preliminary Blood No Growth after 24 hours Assessment and Plan Assessment: Acute COVID infection Elevated troponins,secondary to acute renal failure, not suggestive of ACS, cardiology following Dehydration, poor oral intake Acute renal failure, secondary to the above Acute metabolic encephalopathy secondary to the above Coccyx pressure ulcer, unstageable, present on admission, chronic-patient reports present X 3 months. Generalized weakness, failure to thrive in a patient with OA, Gait dysfunction, history of recent falls History of esophageal obstruction CAD, history of [place] Acute UTI ruled out, culture negative History of prostate cancer Former nicotine dependence Anxiety Depression Plan:Continue on current medication regime ,monitoring and symptomatic treatment. Strict aspiration precautions, swallow evaluation pending.Flomax added to med regimen. Wound care as per wound care team. Echo pending. PT OT. Possible [place] at discharge.Pulmonary consult in place, recommendations pending. The impression and plan of care has been dictated as directed. : I performed a history and examination of this patient, discussed the same with the dictator. I agree with the dictator's note ,documented as a scribe. Any additional findings or plans will be noted.
[2021-04-30] MEDS: DEXTROSE 5% IN WATER 1,000 ML IV SCH (15:42)
[2021-04-30] MEDS: INSULIN ASPART (NovoLOG) 100 UNIT/ML VIAL SQ SCH ×2 (17:20→20:29)
[2021-04-30 17:21] LABS: Glucose,Whole Blood 74 mg/dL (75-99)
--- NOTE | 2021-04-30 17:38 | P.CNPUL ---
History of Present Illness Consult date: 04/30/21 Requesting physician: Kimi Garibay Reason for consult: other Chief complaint: Generalized weakness, COVID-19 infection History of present illness: This is a 89-year-old white male patient, with past medical history of recurrent dysphagia, with recent EGD in March 2021 that revealed upper es ophageal stricture, and mild erosive esophagitis, former nicotine dependence, anxiety and depression, who was brought into the emergency department on 04/28/2021 by EMS primarily for symptoms of weakness. Apparently patient has been weak for the past several days. He had sustained a fall at home. He is not able to walk at home, he was with his caregiver a into the ED notes, according to the nursing reports patient lives with his family. Seems to be quite debilitated, quite frail, and there was skin breakdown noted in the groin area related to excoriation possibly secondary to stool and urine incontinence. Patient has had poor appetite. He was found to be COVID positive in the emergency department. His chest x-ray showed clear lungs, no hilar masses, no pleural effusion. Thoracic aorta was atheromatous, heart size was normal, there was no active cardiopulmonary disease. X-ray of the pelvis was obtained in view of his recent fall and did not show any evidence of fever or hip joint fractures. Pelvic ring was intact. Patient had evidence of acute kidney injury and dehydration on his laboratory evaluation, his white blood cell count was 3.1 on admission, his hemoglobin was 14.7, his platelet count was 1:15, INR is 1.1, sodium is 143, his potassium was 3.4, chloride is 107, CO2 is 25, BUN of 63, creatinine is 1.61. His ferritin level is 627, AST was 84, the rest of his LFTs were within normal limits, LDH is 591, within normal limits, patient did have troponin elevation at 0.206, 0.183, and 0.193. Pro-calcitonin level was 0.39, urinalysis showed evidence of acute urinary tract infection, urine culture is still pending at this time. Clinically patient seemed very dehydrated, however was not complaining of any pulmonary symptoms, no cough, no difficulty breathing, room air pulse ox was 92%, his been hemodynamically stable. Lung sounds are essentially clear to auscultation. Cardiology consultation was requested in view of elevated troponins please refer to their consultation notes. Patient is a very poor historian, and according to the nursing staff he seems to be a bit more confused today compared to yesterday. Apparently patient has had a significant weight loss, and his dentures do not fit right and are too large. Currently does not appear to be in any respiratory distress. Review of Systems All systems: negative Constitutional: Reports fatigue, Reports weakness, Denies chills, Denies fever Eyes: denies blurred vision, denies pain Ears, nose, mouth and throat: Denies headache, Denies sore throat Cardiovascular: Reports decreased exercise tolerance, Denies chest pain, Denies shortness of breath Respiratory: Denies cough Gastrointestinal: Denies abdominal pain, Denies diarrhea, Denies nausea, Denies vomiting Musculoskeletal: Denies myalgias Integumentary: Denies pruritus, Denies rash Neurological: Denies numbness, Denies weakness Psychiatric: Denies anxiety, Denies depression Endocrine: Denies fatigue, Denies weight change Past Medical History Past Medical History: Cancer, Hearing Disorder / Deafness, Hyperlipidemia, Myocardial Infarction ([place]), Osteoarthritis (OA), Prostate Disorder Additional Past Medical History / Comment(s): recent food stuck in throat came to hospital was removed. frequent falls, prostate cancer Last Myocardial Infarction Date:: unknown History of Any Multi-Drug Resistant Organisms: None Reported Past Surgical History: Joint Replacement Additional Past Surgical History / Comment(s): knee replacement Past Anesthesia/Blood Transfusion Reactions: Unable to Obtain Past Psychological History: Anxiety, Depression Smoking Status: Former smoker Past Alcohol Use History: None Reported Past Drug Use History: None Reported Medications and Allergies Home Medications Medication Instructions Recorded Confirmed Type ALPRAZolam [Xanax] 0.5 mg PO TID 02/17/21 04/28/21 History Sertraline [Zoloft] 150 mg PO DAILY 02/17/21 04/28/21 History Omeprazole 20 mg PO DAILY 04/28/21 04/28/21 History Allergies Allergy/AdvReac Type Severity Reaction Status Date / Time Iodinated Contrast Media Allergy Unknown Verified 04/28/21 18:59 Physical Exam Vitals: Vital Signs Temp Pulse Resp BP Pulse Ox 04/30/21 16:59 98.3 F 15 97/55 94 L 04/30/21 12:01 98 F 61 17 108/57 92 L 04/30/21 08:49 97.5 F L 67 18 119/59 94 L 04/30/21 08:25 96 04/30/21 04:00 97.8 F 75 16 123/68 95 04/29/21 23:30 98.0 F 74 16 116/62 93 L 04/29/21 20:00 98.1 F 74 16 128/65 94 L Intake and Output 04/30/21 04/30/21 04/30/21 06:59 14:59 22:59 Intake Total 240 Output Total 420 420 Balance -420 -180 Intake: Oral 240 Output: Urine 420 420 Other: Voiding Method Indwelling Catheter Indwelling Catheter GENERAL EXAM: Alert, but confused, 89-year-old very frail looking very thin b uilt white male, appears to be in no acute distress, the patient is a poor historian HEAD: Normocephalic/atraumatic. EYES: Normal reaction of pupils, equal size. Conjunctiva pink, sclera white. NOSE: Clear with pink turbinates. MOUTH: Patient has dentures that are too large and ill-fitting, and are half- coming out of his mouth THROAT: No erythema or exudates. NECK: No masses, no JVD, no thyroid enlargement, no adenopathy. CHEST: No chest wall deformity. Symmetrical expansion. LUNGS: Equal air entry with no crackles, wheeze, rhonchi or dullness. CVS: Regular rate and rhythm, normal S1 and S2, no gallops, no murmurs, no rubs ABDOMEN: Soft, nontender. No hepatosplenomegaly, normal bowel sounds, no guarding or rigidity. EXTREMITIES: No clubbing, no edema, no cyanosis, 2+ pulses and upper and lower extremities. MUSCULOSKELETAL: Muscle strength and tone normal. SPINE: No scoliosis or deformity SKIN: Incontinence dermatitis present in the perineal area CENTRAL NERVOUS SYSTEM: Awake, but confused No focal deficits, tone is normal in all 4 extremities. Results - Laboratory Findings CBC and BMP: 04/30/21 09:04 04/30/21 09:04 PT/INR, D-dimer PT 12.0 sec (9.0-12.0) 04/28/21 15:54 INR 1.1 (<1.2) 04/28/21 15:54 Abnormal lab findings: Abnormal Labs 04/28/21 04/28/21 04/28/21 15:54 15:54 15:54 WBC 3.1 L Hgb Plt Count 115 L APTT 34.1 H Sodium Potassium Chloride BUN Creatinine Glucose Ferritin AST Troponin I C-Reactive Protein HDL Cholesterol Procalcitonin Urine Protein Trace H Urine Blood Moderate H Ur Leukocyte Esterase Trace H Urine RBC 8 H Urine WBC 17 H Urine Bacteria Rare H Hyaline Casts 3 H Coronavirus (PCR) 04/28/21 04/28/21 04/28/21 15:54 15:54 15:54 WBC Hgb Plt Count APTT Sodium Potassium 3.4 L Chloride BUN 63 H Creatinine 1.61 H Glucose 117 H Ferritin 627.0 H AST 84 H Troponin I 0.206 H* C-Reactive Protein 4.1 H HDL Cholesterol Procalcitonin Urine Protein Urine Blood Ur Leukocyte Esterase Urine RBC Urine WBC Urine Bacteria Hyaline Casts Coronavirus (PCR) 04/28/21 04/28/21 04/28/21 15:54 16:50 20:39 WBC Hgb Plt Count APTT Sodium Potassium Chloride BUN Creatinine Glucose Ferritin AST Troponin I 0.183 H* C-Reactive Protein HDL Cholesterol Procalcitonin 0.39 H Urine Protein Urine Blood Ur Leukocyte Esterase Urine RBC Urine WBC Urine Bacteria Hyaline Casts Coronavirus (PCR) Detected A 04/28/21 04/29/21 04/30/21 23:45 07:57 09:04 WBC 3.0 L Hgb 12.8 L Plt Count 80 L APTT Sodium Potassium Chloride BUN Creatinine Glucose Ferritin AST Troponin I 0.193 H* C-Reactive Protein HDL Cholesterol 30.50 L Procalcitonin Urine Protein Urine Blood Ur Leukocyte Esterase Urine RBC Urine WBC Urine Bacteria Hyaline Casts Coronavirus (PCR) 04/30/21 09:04 WBC Hgb Plt Count APTT Sodium 146 H Potassium Chloride 115 H BUN 34 H Creatinine Glucose 110 H Ferritin AST Troponin I C-Reactive Protein HDL Cholesterol Procalcitonin Urine Protein Urine Blood Ur Leukocyte Esterase Urine RBC Urine WBC Urine Bacteria Hyaline Casts Coronavirus (PCR) - Diagnostic Findings Chest x-ray: report reviewed, image reviewed Additional studies: EKG reviewed, pelvis x-ray has been reviewed Assessment and Plan Plan: Assessment: #1. Acute COVID-19 infection without evidence of pneumonia on the chest x-ray. Patient was brought into the hospital on 04/28/2021 primarily for evaluation of generalized weakness, anorexia, and dehydration. Was found to be COVID 19 positive. Vaccination status is unknown. Onset of symptoms is unknown. Carline israel is a poor historian. Is currently on room air, does not appear to be in any respiratory distress #2. Elevated troponins, cardiology is following, and this is thought to be related to acute kidney failure. Please refer to the cardiology consultation #3. Dehydration related to poor oral intake with acute kidney injury improved with IV hydration #4. History of coronary artery disease #5. Acute urinary tract infection #6. Altered mental status related to acute sepsis, COVID-19 infection, dehydration. Baseline mental status is not known to us #7. Chronic anorexia cachexia syndrome #8. General medical debility #9. Recurrent dysphagia, with recent history of EGD that revealed upper esophageal stricture #10. Former tobacco dependence #11. Anxiety/depression #12. Hypernatremia related to free water deficit Plan: No pulmonary symptoms Patient is breathing comfortably, Does not appear to be in any distress, no cough, he is on room air Chest x-ray showed no evidence of pneumonia Continue supportive treatment Continue antibiotics IV hydration No need for Decadron Continue prophylactic anticoagulation We'll continue to follow his clinical course Recommend addressing patient's CODE STATUS Generally he seems to be quiet frail would be useful to know his advanced dire ctive going forward I performed a history & physical examination of the patient and discussed their management with my nurse practitioner, Felicita Anaya. I reviewed the nurse practitioner's note and agree with the documented findings and plan of care. Lung sounds are positive for diffuse wheezes throughout the lung anna. The findings and the impression was discussed with the patient. I attest to the documentation by the nurse practitioner. Time with Patient: Greater than 30
[2021-04-30] MEDS: ALBUTEROL HFA INHALER INHALATION SCH ×2 (17:43→20:58)
[2021-04-30 20:17] LABS: Glucose,Whole Blood 200 mg/dL (75-99)
[2021-05-01 06:07] LABS: Glucose,Whole Blood 245 mg/dL (75-99)
[2021-05-01] MEDS: INSULIN ASPART (NovoLOG) 100 UNIT/ML VIAL SQ SCH ×4 (06:30→21:20)
[2021-05-01 07:53] LABS: Basophils % (A) 0 %; Eosinophils % (A) 0 %; HCT 39.1 % (39.0-53.0); HGB 12.2 gm/dL (13.0-17.5); Hypochromasia Slight; Lymphocytes # (A) 0.5 k/uL (1.0-4.8); Lymphocytes % (A) 35 %; MCH 28.7 pg (25.0-35.0); MCHC 31.2 g/dL (31.0-37.0); MCV 92.1 fL (80.0-100.0); Mean Platelet Volume 9.5; Monocytes % (A) 3 %; Neutrophils # (A) 0.8 k/uL (1.3-7.7); Neutrophils % (A) 58 %; RBC 4.24 m/uL (4.30-5.90)
[2021-05-01 08:10] LABS: Calcium 8.3 mg/dL (8.4-10.2); Potassium 4.2 mmol/L (3.5-5.1)
[2021-05-01 08:11] LABS: Platelet Count 63 k/uL (150-450); WBC 1.4 k/uL (3.8-10.6)
[2021-05-01] MEDS: ALBUTEROL HFA INHALER INHALATION SCH ×4 (08:35→19:27)
[2021-05-01] MEDS: ISOSORBIDE MONONITRATE ER 30 MG TAB.ER.24H PO SCH (09:30)
[2021-05-01] MEDS: ZINC SULFATE 220 MG CAP PO SCH (09:30)
[2021-05-01] MEDS: SERTRALINE 50 MG TAB PO SCH (09:30)
[2021-05-01] MEDS: TAMSULOSIN 0.4 MG CAP.ER.24H PO SCH (09:30)
[2021-05-01] MEDS: PANTOPRAZOLE 40 MG TABLET PO SCH (09:30)
[2021-05-01] MEDS: CHOLECALCIFEROL 25 MCG (1000 IU) TABLET PO SCH (09:30)
[2021-05-01] MEDS: ASPIRIN 81 MG PO SCH (09:31)
[2021-05-01] MEDS: ENOXAPARIN 40 MG/0.4 ML SYRINGE SQ SCH (09:31)
[2021-05-01] MEDS: ASCORBIC ACID 500 MG TAB PO SCH ×2 (09:31→21:20)
[2021-05-01] MEDS: ALPRAZolam 0.5 MG TAB PO SCH ×3 (09:31→21:20)
[2021-05-01] MEDS: METOPROLOL TARTRATE 12.5 MG TAB PO SCH ×2 (09:32→21:21)
--- NOTE | 2021-05-01 11:00 | P.PN ---
Subjective Progress Note Date: 05/01/21 CHIEF COMPLAINT: abnormal troponins HISTORY OF PRESENT ILLNESS: 04/29/2021 Patient is an 89-year-old male with a known history of coronary artery disease myocardial infarction and hyperlipidemia. 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 We are asked to see him for elevated troponins. Patient was brought in to the hospital by his family, he lives with his son. Patient had increased falls and increased confusion. Patient was found to have a positive urinary tract infection. Patient's troponins positive 3. Elevated troponins are likely related to acute renal failure. Patient has no EKG changes. He does have a prior history of an inferior wall infarct. No concern for myocardial infarction Patient is more alert and orientated today and able to answer questions. He denies chest pain, palpitations, dyspnea, dizziness. start Imdur 30 mg daily. We'll start Lopressor 25 twice a day and will obtain an echocardiogram on the patient 05/01/2021 Patient remains on 3S. He appears to be resting comfortably. Patient was bradycardic last night and his evening dose of metoprolol was held. His heart rate this morning is around 50-60. Echo reveals EF 40-45% with posterior hypokinesis. Kidney function remains stable. Creatinine 0.87 today. PHYSICAL EXAM: Thorough physical exam not completed secondary to limited evaluation/examination due to Covid19 ASSESSMENT: Covid 19 Acute renal failure Abnormal troponins, secondary to SEAN, not suggestive of ACS Urinary tract infection Altered mental status Failure to thrive PLAN: Continue current cardiac medications Decrease metoprolol to 12.5mg BID Continue telemetry monitoring Further recommendations pending patient course Nurse practitioner note has been reviewed by physician. Signing provider agrees with the documented findings, assessment, and plan of care. Objective - Vital Signs Vital signs: Vital Signs Temp 97.4 F L 05/01/21 04:00 Pulse 58 L 05/01/21 04:00 Resp 19 05/01/21 04:00 BP 123/67 05/01/21 04:00 Pulse Ox 93 L 05/01/21 04:00 Intake & Output 04/30/21 05/01/21 05/01/21 18:59 06:59 18:59 Intake Total 240 10 Output Total 720 300 Balance -480 -290 Intake: IV 10 Invasive Line 1 10 Oral 240 Output: Urine 720 300 Other: Voiding Method Indwelling Catheter Indwelling Catheter - Labs CBC & Chem 7: 05/01/21 06:26 05/01/21 06:26 Labs: Abnormal Lab Results - Last 24 Hours (Table) 04/30/21 04/30/21 05/01/21 Range/Units 17:20 20:15 06:04 WBC (3.8-10.6) k/uL RBC (4.30-5.90) m/uL Hgb (13.0-17.5) gm/dL Plt Count (150-450) k/uL Chloride (98-107) mmol/L Carbon Dioxide (22-30) mmol/L BUN (9-20) mg/dL Glucose (74-99) mg/dL POC Glucose (mg/dL) 74 L 200 H 245 H (75-99) mg/dL Calcium (8.4-10.2) mg/dL 05/01/21 05/01/21 Range/Units 06:26 06:26 WBC 1.4 L* (3.8-10.6) k/uL RBC 4.24 L (4.30-5.90) m/uL Hgb 12.2 L (13.0-17.5) gm/dL Plt Count 63 L (150-450) k/uL Chloride 117 H (98-107) mmol/L Carbon Dioxide 21 L (22-30) mmol/L BUN 37 H (9-20) mg/dL Glucose 160 H (74-99) mg/dL POC Glucose (mg/dL) (75-99) mg/dL Calcium 8.3 L (8.4-10.2) mg/dL Microbiology - Last 24 Hours (Table) 04/28/21 17:20 Blood Culture - Preliminary Blood No Growth after 48 hours 04/28/21 17:35 Blood Culture - Preliminary Blood No Growth after 48 hours
[2021-05-01 11:42] LABS: Glucose,Whole Blood 159 mg/dL (75-99)
--- NOTE | 2021-05-01 12:40 | P.PN ---
Subjective Progress Note Date: 05/01/21 This is a 89-year-old white male patient, with past medical history of recurrent dysphagia, with recent EGD in March 2021 that revealed upper esophageal stricture, and mild erosive esophagitis, former nicotine dependence, anxiety and depression, who was brought into the emergency department on 022 by EMS primarily for symptoms of weakness. Apparently patient has been weak for the past several days. He had sustained a fall at home. He is not able to walk at home, he was with his caregiver a into the ED notes, according to the nursing reports patient lives with his family. Seems to be quite debilitated, quite frail, and there was skin breakdown noted in the groin area related to excoriation possibly secondary to stool and urine incontinence. Patient has had poor appetite. He was found to be COVID positive in the emergency department. His chest x-ray showed clear lungs, no hilar masses, no pleural effusion. Thoracic aorta was atheromatous, heart size was normal, there was no active cardiopulmonary disease. X-ray of the pelvis was obtained in view of his recent fall and did not show any evidence of fever or hip joint fractures. Pelvic ring was intact. Patient had evidence of acute kidney injury and dehydration on his laboratory evaluation, his white blood cell count was 3.1 on admission, his hemoglobin was 14.7, his platelet count was 1:15, INR is 1.1, sodium is 143, his potassium was 3.4, chloride is 107, CO2 is 25, BUN of 63, creatinine is 1.61. His ferritin level is 627, AST was 84, the rest of his LFTs were within normal limits, LDH is 591, within normal limits, patient did have troponin elevation at 0.206, 0.183, and 0.193. Pro-calcitonin level was 0.39, urinalysis showed evidence of acute urinary tract infection, urine culture is still pending at thi s time. Clinically patient seemed very dehydrated, however was not complaining of any pulmonary symptoms, no cough, no difficulty breathing, room air pulse ox was 92%, his been hemodynamically stable. Lung sounds are essentially clear to auscultation. Cardiology consultation was requested in view of elevated troponins please refer to their consultation notes. Patient is a very poor historian, and according to the nursing staff he seems to be a bit more confused today compared to yesterday. Apparently patient has had a significant weight loss, and his dentures do not fit right and are too large. Currently does not appear to be in any respiratory distress. The patient is seen today 05/01/2021 in follow-up on the regular medical floor. He is currently sitting up in bed. Awake. Tolerating applesauce. Maintaining O2 saturation in the mid 90s on 3 L/m per nasal cannula. He's been afebrile. Hemodynamically stable. Blood cultures reveal no growth. White count 1.4. Hemoglobin 12.2. Platelet count 63,000. Sodium 144. Potassium 4.2. Creatinine 0.87. Glucose 160. Luna virus by PCR positive. Pro-calcitonin 0.39. He is continued on Lovenox, vitamin supplements. Antibiotics in the form of ceftriaxone. Objective - Vital Signs Vital signs: Vital Signs Temp 97.8 F 05/01/21 08:00 Pulse 59 L 05/01/21 08:00 Resp 19 05/01/21 08:00 BP 157/64 05/01/21 08:00 Pulse Ox 95 05/01/21 08:00 Intake & Output 04/30/21 05/01/21 05/01/21 18:59 06:59 18:59 Intake Total 240 10 Output Total 720 300 Balance -480 -290 Intake: IV 10 Invasive Line 1 10 Oral 240 Output: Urine 720 300 Other: Voiding Method Indwelling Catheter Indwelling Catheter Indwelling Catheter - Exam GENERAL EXAM: Alert, but confused, 89-year-old very frail looking male patient, on 3 L nasal cannula, appears to be in no acute distress, the patient is a poor historian HEAD: Normocephalic/atraumatic. EYES: Normal reaction of pupils, equal size. Conjunctiva pink, sclera white. NOSE: Clear with pink turbinates. MOUTH: Patient has dentures that are too large and ill-fitting, and are half- coming out of his mouth THROAT: No erythema or exudates. NECK: No masses, no JVD, no thyroid enlargement, no adenopathy. CHEST: No chest wall deformity. Symmetrical expansion. LUNGS: Equal air entry with no crackles, wheeze, rhonchi or dullness. CVS: Regular rate and rhythm, normal S1 and S2, no gallops, no murmurs, no rubs ABDOMEN: Soft, nontender. No hepatosplenomegaly, normal bowel sounds, no guarding or rigidity. EXTREMITIES: No clubbing, no edema, no cyanosis, 2+ pulses and upper and lower extremities. MUSCULOSKELETAL: Muscle strength and tone normal. SPINE: No scoliosis or deformity SKIN: Incontinence dermatitis present in the perineal area CENTRAL NERVOUS SYSTEM: Awake, but confused No focal deficits, tone is normal in all 4 extremities. - Labs CBC & Chem 7: 05/01/21 06:26 05/01/21 06:26 Labs: Abnormal Lab Results - Last 24 Hours (Table) 04/30/21 04/30/21 05/01/21 Range/Units 17:20 20:15 06:04 WBC (3.8-10.6) k/uL RBC (4.30-5.90) m/uL Hgb (13.0-17.5) gm/dL Plt Count (150-450) k/uL Neutrophils # (1.3-7.7) k/uL Lymphocytes # (1.0-4.8) k/uL Chloride (98-107) mmol/L Carbon Dioxide (22-30) mmol/L BUN (9-20) mg/dL Glucose (74-99) mg/dL POC Glucose (mg/dL) 74 L 200 H 245 H (75-99) mg/dL Calcium (8.4-10.2) mg/dL 05/01/21 05/01/21 05/01/21 Range/Units 06:26 06:26 11:40 WBC 1.4 L* (3.8-10.6) k/uL RBC 4.24 L (4.30-5.90) m/uL Hgb 12.2 L (13.0-17.5) gm/dL Plt Count 63 L (150-450) k/uL Neutrophils # 0.8 L (1.3-7.7) k/uL Lymphocytes # 0.5 L (1.0-4.8) k/uL Chloride 117 H (98-107) mmol/L Carbon Dioxide 21 L (22-30) mmol/L BUN 37 H (9-20) mg/dL Glucose 160 H (74-99) mg/dL POC Glucose (mg/dL) 159 H (75-99) mg/dL Calcium 8.3 L (8.4-10.2) mg/dL Microbiology - Last 24 Hours (Table) 04/28/21 17:20 Blood Culture - Preliminary Blood No Growth after 48 hours 04/28/21 17:35 Blood Culture - Preliminary Blood No Growth after 48 hours Assessment and Plan Assessment: 1 Acute COVID-19 infection without evidence of pneumonia on the chest x-ray. Patient was brought into the hospital on 04/28/2021 primarily for evaluation of generalized weakness, anorexia, and dehydration. Was found to be COVID 19 positive. Vaccination status is unknown. Onset of symptoms is unknown. Patient is a poor historian. Is currently on 3 L, does not appear to be in any respiratory distress 2 Elevated troponins, cardiology is following, and this is thought to be related to acute kidney failure. Please refer to the cardiology consultation 3 Dehydration related to poor oral intake with acute kidney injury improved with IV hydration 4 History of coronary artery disease 5 Acute urinary tract infection 6 Altered mental status related to acute sepsis, COVID-19 infection, dehydration. Baseline mental status is not known to us 7 Chronic anorexia cachexia syndrome 8 General medical debility 9 Recurrent dysphagia, with recent history of EGD that revealed upper esophageal stricture 10 Former tobacco dependence 11 Anxiety/depression 12 Hypernatremia related to free water deficit 13 Poor overall functional performance based on the above-mentioned multiple comorbidities Plan: The patient was seen and evaluated Currently stable from the pulmonary standpoint, on 2 L Continue the current treatment plan Continue the current treatment plan The plan is for subacute rehab upon discharge I, the cosigning physician, performed a history & physical examination of the patient. Lungs sounds are clear. Maintaining good O2 saturations in the 90s on 3 L/m per nasal cannula. I discussed the assessment and plan of care with my nurse practitioner, Mercy Smyth. I attest to the above note as dictated by her.
--- NOTE | 2021-05-01 15:53 | P.PN ---
Subjective Progress Note Date: 05/01/21 This is an 89-year-old gentleman admitted with acute covid infection,elevated troponins, acute renal failure, hypokalemia, generalized weakness and multiple other medical issues. Patient also has a history of esophageal obstruction ,scheduled for swallow evaluation as per speech therapy. Guzman catheter had been inserted for urinary retention. Sitting up in bed, consumed about 40% of breakfast. Ill fitting dentures, currently out of his mouth. Maintained on IV antibiotics of ceftriaxone, Covid cocktail, pleasantly confused with significant weakness. Renal function improving with creatinine decreased to 0.98. Evaluated by cardiology, recommendations noted, echo pending. Telemetry reported sinus r hythm. Afebrile, WBC 3. Maintaining O2 sats in the low 90s on room air. 05/01/2021 maintained on Covid cocktail , ceftriaxone . Increased lethargy.Echo reported EF 40-45% with posterior hypokinesis,telemetry reporting bradycardia throughout the night, beta augustus held, heart rate currently 50 to 60s. Creatinine trending down to 0.87. Maintaining O2 sats in the 90s on 3 L nasal cannula .Afebrile, preliminary blood cultures reporting no growth in 48 hours. Objective - Vital Signs Vital signs: Vital Signs Temp 97.8 F 05/01/21 08:00 Pulse 67 05/01/21 12:00 Resp 18 05/01/21 12:00 BP 127/65 05/01/21 12:00 Pulse Ox 93 L 05/01/21 12:00 Intake & Output 04/30/21 05/01/21 05/01/21 18:59 06:59 18:59 Intake Total 240 10 120 Output Total 720 300 175 Balance -480 -290 -55 Weight 49.895 kg Intake: IV 10 Invasive Line 1 10 Oral 240 120 Output: Urine 720 300 175 Other: Voiding Method Indwelling Catheter Indwelling Catheter Indwelling Catheter - Exam PHYSICAL EXAM: VITAL SIGNS: [As above] GENERAL: Sitting up in bed, eating breakfast, pleasantly confused, lethargic, mumbling HEENT: Conjunctivae normal. eyes normal. Oral mucosa moist NECK: Supple, No JVD. CARDIOVASCULAR: S1, S2 regular. No murmur. RESPIRATION: Breath sounds diminished in the bases. No rhonchi or crackles. ABDOMEN: Soft, nontender . No guarding. no masses palpable. Positive Bowel sounds. LEGS: No edema. no swelling PSYCHIATRY: Alert and oriented X2, mood and affect normal. NERVOUS SYSTEM: Limited exam -Cranial N 2-12 grossly normal. Diffuse weakness, No focal deficits. Skin: Unstageable coccyx pressure ulcer with eschar, refer to sizing documented per wound care team. - Labs CBC & Chem 7: 05/01/21 06:26 05/01/21 06:26 Labs: Abnormal Lab Results - Last 24 Hours (Table) 04/30/21 04/30/21 05/01/21 Range/Units 17:20 20:15 06:04 WBC (3.8-10.6) k/uL RBC (4.30-5.90) m/uL Hgb (13.0-17.5) gm/dL Plt Count (150-450) k/uL Neutrophils # (1.3-7.7) k/uL Lymphocytes # (1.0-4.8) k/uL Chloride (98-107) mmol/L Carbon Dioxide (22-30) mmol/L BUN (9-20) mg/dL Glucose (74-99) mg/dL POC Glucose (mg/dL) 74 L 200 H 245 H (75-99) mg/dL Calcium (8.4-10.2) mg/dL 05/01/21 05/01/21 05/01/21 Range/Units 06:26 06:26 11:40 WBC 1.4 L* (3.8-10.6) k/uL RBC 4.24 L (4.30-5.90) m/uL Hgb 12.2 L (13.0-17.5) gm/dL Plt Count 63 L (150-450) k/uL Neutrophils # 0.8 L (1.3-7.7) k/uL Lymphocytes # 0.5 L (1.0-4.8) k/uL Chloride 117 H (98-107) mmol/L Carbon Dioxide 21 L (22-30) mmol/L BUN 37 H (9-20) mg/dL Glucose 160 H (74-99) mg/dL POC Glucose (mg/dL) 159 H (75-99) mg/dL Calcium 8.3 L (8.4-10.2) mg/dL Microbiology - Last 24 Hours (Table) 04/28/21 17:20 Blood Culture - Preliminary Blood No Growth after 48 hours 04/28/21 17:35 Blood Culture - Preliminary Blood No Growth after 48 hours Assessment and Plan Assessment: Acute COVID infection Elevated troponins,secondary to acute renal failure, not suggestive of ACS, cardiology following Dehydration, poor oral intake Acute renal failure, secondary to the above Acute metabolic encephalopathy secondary to the above Coccyx pressure ulcer, unstageable, present on admission, chronic-patient reports present X 3 months. Generalized weakness, failure to thrive in a patient with OA, Gait dysfunction, history of recent falls Moderate malnutrition, BMI 15.8 History of esophageal obstruction CAD, history of MA Acute UTI ruled out, culture negative History of prostate cancer Former nicotine dependence Anxiety Depression Plan:Continue on current medication regime ,monitoring and symptomatic treatment. Beta augustus dose decreased .Maintaining Strict aspiration precautions. Wound care as per wound care team. PT OT. Discharge planning in progress to [facility] pending final DC recommendations and clearance per pulmonary, cardiology. The impression and plan of care has been dictated as directed. : I performed a history and examination of this patient, discussed the same with the dictator. I agree with the dictator's note ,documented as a scribe. Any additional findings or plans will be noted.
[2021-05-01 16:34] LABS: Glucose,Whole Blood 116 mg/dL (75-99)
[2021-05-01 20:26] LABS: Glucose,Whole Blood 147 mg/dL (75-99)
[2021-05-01] MEDS: DEXTROSE 5% IN WATER 1,000 ML IV SCH (20:32)
[2021-05-02 06:18] LABS: Glucose,Whole Blood 157 mg/dL (75-99)
[2021-05-02] MEDS: DEXTROSE 5% IN WATER 1,000 ML IV SCH (07:01)
[2021-05-02] MEDS: INSULIN ASPART (NovoLOG) 100 UNIT/ML VIAL SQ SCH ×4 (07:07→20:29)
[2021-05-02 09:15] LABS: Basophils % (A) 0 %; Eosinophils % (A) 0 %; HCT 37.9 % (39.0-53.0); HGB 12.1 gm/dL (13.0-17.5); Lymphocytes # (A) 0.7 k/uL (1.0-4.8); Lymphocytes % (A) 17 %; MCH 29.1 pg (25.0-35.0); Mean Platelet Volume 9.8; Monocytes # (A) 0.1 k/uL (0-1.0); Monocytes % (A) 2 %; Neutrophils # (A) 3.2 k/uL (1.3-7.7); Neutrophils % (A) 79 %; RBC 4.16 m/uL (4.30-5.90); RDW 15.1 % (11.5-15.5)
[2021-05-02] MEDS: ASCORBIC ACID 500 MG TAB PO SCH ×2 (09:18→20:38)
[2021-05-02] MEDS: PANTOPRAZOLE 40 MG TABLET PO SCH (09:19)
[2021-05-02] MEDS: ALBUTEROL HFA INHALER INHALATION SCH ×4 (09:19→20:16)
[2021-05-02] MEDS: CHOLECALCIFEROL 25 MCG (1000 IU) TABLET PO SCH (09:19)
[2021-05-02] MEDS: TAMSULOSIN 0.4 MG CAP.ER.24H PO SCH (09:19)
[2021-05-02] MEDS: ZINC SULFATE 220 MG CAP PO SCH (09:19)
[2021-05-02] MEDS: METOPROLOL TARTRATE 12.5 MG TAB PO SCH ×2 (09:20→20:38)
[2021-05-02] MEDS: ENOXAPARIN 40 MG/0.4 ML SYRINGE SQ SCH (09:20)
[2021-05-02] MEDS: ASPIRIN 81 MG PO SCH (09:20)
[2021-05-02] MEDS: ALPRAZolam 0.5 MG TAB PO SCH ×3 (09:20→23:38)
[2021-05-02] MEDS: ISOSORBIDE MONONITRATE ER 30 MG TAB.ER.24H PO SCH (09:20)
[2021-05-02] MEDS: SERTRALINE 50 MG TAB PO SCH (09:25)
[2021-05-02 09:30] LABS: Calcium 8.4 mg/dL (8.4-10.2); Potassium 3.9 mmol/L (3.5-5.1)
[2021-05-02 09:33] LABS: Platelet Count 67 k/uL (150-450)
--- NOTE | 2021-05-02 11:26 | P.PN ---
Subjective Progress Note Date: 05/02/21 This is an 89-year-old gentleman admitted with acute covid infection,elevated troponins, acute renal failure, hypokalemia, generalized weakness and multiple other medical issues. Patient also has a history of esophageal obstruction ,scheduled for swallow evaluation as per speech therapy. Guzman catheter had been inserted for urinary retention. Sitting up in bed, consumed about 40% of breakfast. Ill fitting dentures, currently out of his mouth. Maintained on IV antibiotics of ceftriaxone, Covid cocktail, pleasantly confused with significant weakness. Renal function improving with creatinine decreased to 0.98. Evaluated by cardiology, recommendations noted, echo pending. Telemetry reported sinus r hythm. Afebrile, WBC 3. Maintaining O2 sats in the low 90s on room air. 05/01/2021 maintained on Covid cocktail , ceftriaxone . Increased lethargy.Echo reported EF 40-45% with posterior hypokinesis,telemetry reporting bradycardia throughout the night, beta augustus held, heart rate currently 50 to 60s. Creatinine trending down to 0.87. Maintaining O2 sats in the 90s on 3 L nasal cannula .Afebrile, preliminary blood cultures reporting no growth in 48 hours. 05/02/2021 Continues on ceftriaxone, Covid cocktail .labs pending. Pancytopenia, decreasing platelets, hemoglobin, WBC. Lethargic, sleepy. Afebrile. Preliminary blood cultures no growth at 72 hours. Diet intake averaging about 25%. Renal function stable. Objective - Vital Signs Vital signs: Vital Signs Temp 97.5 F L 05/02/21 03:30 Pulse 56 L 05/02/21 08:00 Resp 16 05/02/21 08:00 BP 134/61 05/02/21 08:00 Pulse Ox 96 05/02/21 08:00 Intake & Output 05/01/21 05/02/21 05/02/21 18:59 06:59 18:59 Intake Total 120 118 Output Total 175 0 Balance -55 0 118 Weight 49.895 kg 42.5 kg Intake: Oral 120 118 Output: Urine 175 0 Other: Voiding Method Indwelling Catheter Indwelling Catheter # Bowel Movements 1 - Exam PHYSICAL EXAM: VITAL SIGNS: [As above] GENERAL: Sitting up in bed, alert and oriented 2, sleepy, lethargic, mumbling HEENT: Conjunctivae normal. eyes normal. Oral mucosa moist NECK: Supple, No JVD. CARDIOVASCULAR: S1, S2 regular. No murmur. RESPIRATION: Breath sounds diminished in the bases. No rhonchi or crackles. ABDOMEN: Soft, nontender . No guarding. no masses palpable. Positive Bowel sounds. LEGS: No edema. no swelling NERVOUS SYSTEM: Limited exam -Cranial N 2-12 grossly normal. Diffuse weakness, No focal deficits. Skin: Unstageable coccyx pressure ulcer with eschar, refer to sizing documented per wound care team. - Labs CBC & Chem 7: 05/02/21 08:36 05/02/21 08:36 Labs: Abnormal Lab Results - Last 24 Hours (Table) 05/01/21 05/01/21 05/01/21 Range/Units 06:26 11:40 16:33 RBC (4.30-5.90) m/uL Hgb (13.0-17.5) gm/dL Hct (39.0-53.0) % Plt Count (150-450) k/uL Neutrophils # 0.8 L (1.3-7.7) k/uL Lymphocytes # 0.5 L (1.0-4.8) k/uL Chloride (98-107) mmol/L BUN (9-20) mg/dL Glucose (74-99) mg/dL POC Glucose (mg/dL) 159 H 116 H (75-99) mg/dL 05/01/21 05/02/21 05/02/21 Range/Units 20:24 06:16 08:36 RBC 4.16 L (4.30-5.90) m/uL Hgb 12.1 L (13.0-17.5) gm/dL Hct 37.9 L (39.0-53.0) % Plt Count 67 L (150-450) k/uL Neutrophils # (1.3-7.7) k/uL Lymphocytes # 0.7 L (1.0-4.8) k/uL Chloride (98-107) mmol/L BUN (9-20) mg/dL Glucose (74-99) mg/dL POC Glucose (mg/dL) 147 H 157 H (75-99) mg/dL 05/02/21 Range/Units 08:36 RBC (4.30-5.90) m/uL Hgb (13.0-17.5) gm/dL Hct (39.0-53.0) % Plt Count (150-450) k/uL Neutrophils # (1.3-7.7) k/uL Lymphocytes # (1.0-4.8) k/uL Chloride 112 H (98-107) mmol/L BUN 39 H (9-20) mg/dL Glucose 113 H (74-99) mg/dL POC Glucose (mg/dL) (75-99) mg/dL Microbiology - Last 24 Hours (Table) 04/28/21 17:20 Blood Culture - Preliminary Blood No Growth after 72 hours 04/28/21 17:35 Blood Culture - Preliminary Blood No Growth after 72 hours Assessment and Plan Assessment: Acute COVID infection Elevated troponins,secondary to acute renal failure, not suggestive of ACS, cardiology following Dehydration, poor oral intake Acute renal failure, secondary to the above Acute metabolic encephalopathy secondary to the above Pancytopenia Coccyx pressure ulcer, unstageable, present on admission, chronic-patient reports present X 3 months. Generalized weakness, failure to thrive in a patient with OA, Gait dysfunction, history of recent falls Moderate malnutrition, BMI 15.8 History of esophageal obstruction CAD, history of OH Acute UTI ruled out, culture negative History of prostate cancer Former nicotine dependence Anxiety Depression Plan:Continue on current medication regime ,monitoring and symptomatic treatment. labs pending. Changed ensure supplements to between meals.encouraged diet intake. Dietitian consulted regarding malnutrition. Strict aspiration precautions. Pancytopenia, hematology consulted. Wound care as per wound care team. PT OT. The impression and plan of care has been dictated as directed. : I performed a history and examination of this patient, discussed the same with the dictator. I agree with the dictator's note ,documented as a scribe. Any additional findings or plans will be noted.
[2021-05-02 11:57] LABS: Glucose,Whole Blood 125 mg/dL (75-99)
--- NOTE | 2021-05-02 12:06 | P.PN ---
Subjective Progress Note Date: 05/02/21 CHIEF COMPLAINT: abnormal troponins HISTORY OF PRESENT ILLNESS: 04/29/2021 Patient is an 89-year-old male with a known history of coronary artery disease myocardial infarction and hyperlipidemia. He does not follow with a social sciences department chair in the office. We are asked to see him for elevated troponins. Patient was brought in to the hospital by his family, he lives with his son. Patient had increased falls and increased confusion. Patient was found to have a positive urinary tract infection. Patient's troponins positive 3. Elevated troponins are likely related to acute renal failure. Patient has no EKG changes. He does have a prior history of an inferior wall infarct. No concern for myocardial infarction Patient is more alert and orientated today and able to answer questions. He denies chest pain, palpitations, dyspnea, dizziness. start Imdur 30 mg daily. We'll start Lopressor 25 twice a day and will obtain an echocardiogram on the patient 05/01/2021 Patient remains on 3S. He appears to be resting comfortably. Patient was bradycardic last night and his evening dose of metoprolol was held. His heart rate this morning is around 50-60. Echo reveals EF 40-45% with posterior hypokinesis. Kidney function remains stable. Creatinine 0.87 today. 05/02/2021 Patient remains on 3S. He is resting comfortably. Vital signs are stable. Telemetry reveals heart rate in the 50-60s. PHYSICAL EXAM: Thorough physical exam not completed secondary to limited evaluation/examination due to Covid19 ASSESSMENT: Covid 19 Acute renal failure Abnormal troponins, secondary to SEAN, not suggestive of ACS Urinary tract infection Altered mental status Failure to thrive PLAN: Continue current cardiac medications No further inpatient recommendations from a cardiac standpoint We will sign off. Please reconsult if needed. Nurse practitioner note has been reviewed by physician. Signing provider agrees with the documented findings, assessment, and plan of care. Objective - Vital Signs Vital signs: Vital Signs Temp 97.5 F L 05/02/21 03:30 Pulse 56 L 05/02/21 08:00 Resp 16 05/02/21 08:00 BP 134/61 05/02/21 08:00 Pulse Ox 96 05/02/21 08:00 Intake & Output 05/01/21 05/02/21 05/02/21 18:59 06:59 18:59 Intake Total 120 118 Output Total 175 0 Balance -55 0 118 Weight 49.895 kg 42.5 kg Intake: Oral 120 118 Output: Urine 175 0 Other: Voiding Method Indwelling Catheter Indwelling Catheter Indwelling Catheter # Bowel Movements 1 - Labs CBC & Chem 7: 05/02/21 08:36 05/02/21 08:36 Labs: Abnormal Lab Results - Last 24 Hours (Table) 05/01/21 05/01/21 05/01/21 Range/Units 06:26 16:33 20:24 RBC (4.30-5.90) m/uL Hgb (13.0-17.5) gm/dL Hct (39.0-53.0) % Plt Count (150-450) k/uL Neutrophils # 0.8 L (1.3-7.7) k/uL Lymphocytes # 0.5 L (1.0-4.8) k/uL Chloride (98-107) mmol/L BUN (9-20) mg/dL Glucose (74-99) mg/dL POC Glucose (mg/dL) 116 H 147 H (75-99) mg/dL 05/02/21 05/02/21 05/02/21 Range/Units 06:16 08:36 08:36 RBC 4.16 L (4.30-5.90) m/uL Hgb 12.1 L (13.0-17.5) gm/dL Hct 37.9 L (39.0-53.0) % Plt Count 67 L (150-450) k/uL Neutrophils # (1.3-7.7) k/uL Lymphocytes # 0.7 L (1.0-4.8) k/uL Chloride 112 H (98-107) mmol/L BUN 39 H (9-20) mg/dL Glucose 113 H (74-99) mg/dL POC Glucose (mg/dL) 157 H (75-99) mg/dL 05/02/21 Range/Units 11:48 RBC (4.30-5.90) m/uL Hgb (13.0-17.5) gm/dL Hct (39.0-53.0) % Plt Count (150-450) k/uL Neutrophils # (1.3-7.7) k/uL Lymphocytes # (1.0-4.8) k/uL Chloride (98-107) mmol/L BUN (9-20) mg/dL Glucose (74-99) mg/dL POC Glucose (mg/dL) 125 H (75-99) mg/dL Microbiology - Last 24 Hours (Table) 04/28/21 17:20 Blood Culture - Preliminary Blood No Growth after 72 hours 04/28/21 17:35 Blood Culture - Preliminary Blood No Growth after 72 hours
--- NOTE | 2021-05-02 12:38 | P.PN ---
Subjective Progress Note Date: 05/02/21 This is a 89-year-old white male patient, with past medical history of recurrent dysphagia, with recent EGD in March 2021 that revealed upper esophageal stricture, and mild erosive esophagitis, former nicotine dependence, anxiety and depression, who was brought into the emergency department on 022 by EMS primarily for symptoms of weakness. Apparently patient has been weak for the past several days. He had sustained a fall at home. He is not able to walk at home, he was with his caregiver a into the ED notes, according to the nursing reports patient lives with his family. Seems to be quite debilitated, quite frail, and there was skin breakdown noted in the groin area related to excoriation possibly secondary to stool and urine incontinence. Patient has had poor appetite. He was found to be COVID positive in the emergency department. His chest x-ray showed clear lungs, no hilar masses, no pleural effusion. Thoracic aorta was atheromatous, heart size was normal, there was no active cardiopulmonary disease. X-ray of the pelvis was obtained in view of his recent fall and did not show any evidence of fever or hip joint fractures. Pelvic ring was intact. Patient had evidence of acute kidney injury and dehydration on his laboratory evaluation, his white blood cell count was 3.1 on admission, his hemoglobin was 14.7, his platelet count was 1:15, INR is 1.1, sodium is 143, his potassium was 3.4, chloride is 107, CO2 is 25, BUN of 63, creatinine is 1.61. His ferritin level is 627, AST was 84, the rest of his LFTs were within normal limits, LDH is 591, within normal limits, patient did have troponin elevation at 0.206, 0.183, and 0.193. Pro-calcitonin level was 0.39, urinalysis showed evidence of acute urinary tract infection, urine culture is still pending at thi s time. Clinically patient seemed very dehydrated, however was not complaining of any pulmonary symptoms, no cough, no difficulty breathing, room air pulse ox was 92%, his been hemodynamically stable. Lung sounds are essentially clear to auscultation. Cardiology consultation was requested in view of elevated troponins please refer to their consultation notes. Patient is a very poor historian, and according to the nursing staff he seems to be a bit more confused today compared to yesterday. Apparently patient has had a significant weight loss, and his dentures do not fit right and are too large. Currently does not appear to be in any respiratory distress. The patient is seen today 05/01/2021 in follow-up on the regular medical floor. He is currently sitting up in bed. Awake. Tolerating applesauce. Maintaining O2 saturation in the mid 90s on 3 L/m per nasal cannula. He's been afebrile. Hemodynamically stable. Blood cultures reveal no growth. White count 1.4. Hemoglobin 12.2. Platelet count 63,000. Sodium 144. Potassium 4.2. Creatinine 0.87. Glucose 160. Luna virus by PCR positive. Pro-calcitonin 0.39. He is continued on Lovenox, vitamin supplements. Antibiotics in the form of ceftriaxone. The patient is seen today 05/02/2021 in follow-up on the regular medical floor. Currently sitting up in bed. Awake and alert in no acute distress. He is maintaining O2 saturations in the 90s on 3 L/m per nasal cannula. He has a loose nonproductive cough. No fever. Hemodynamically stable. Blood cultures reveal no growth. Urine culture revealed no growth. White count 4.0. Hemoglobin 12.1. Platelets 67,000. Sodium 141. Potassium 3.9. Her 24. Creatinine 0.89. Glucose 113. He remains on D5W at 50 MLS per hour. Antibiotics in the form of ceftriaxone. Vitamin supplements. Lovenox for DVT prophylaxis. Objective - Vital Signs Vital signs: Vital Signs Temp 97.5 F L 05/02/21 03:30 Pulse 56 L 05/02/21 08:00 Resp 16 05/02/21 08:00 BP 134/61 05/02/21 08:00 Pulse Ox 96 05/02/21 08:00 Intake & Output 05/01/21 05/02/21 05/02/21 18:59 06:59 18:59 Intake Total 120 118 Output Total 175 0 Balance -55 0 118 Weight 49.895 kg 42.5 kg Intake: Oral 120 118 Output: Urine 175 0 Other: Voiding Method Indwelling Catheter Indwelling Catheter Indwelling Catheter # Bowel Movements 1 - Exam GENERAL EXAM: Alert, pleasant 89-year-old very frail looking male patient, on 3 L nasal cannula, appears to be in no acute distress, the patient is a poor historian HEAD: Normocephalic/atraumatic. EYES: Normal reaction of pupils, equal size. Conjunctiva pink, sclera white. NOSE: Clear with pink turbinates. MOUTH: Patient has dentures that are too large and ill-fitting, and are half- coming out of his mouth THROAT: No erythema or exudates. NECK: No masses, no JVD, no thyroid enlargement, no adenopathy. CHEST: No chest wall deformity. Symmetrical expansion. LUNGS: Equal air entry with bilateral scattered rhonchi. CVS: Regular rate and rhythm, normal S1 and S2, no gallops, no murmurs, no rubs ABDOMEN: Soft, nontender. No hepatosplenomegaly, normal bowel sounds, no guarding or rigidity. EXTREMITIES: No clubbing, no edema, no cyanosis, 2+ pulses and upper and lower extremities. MUSCULOSKELETAL: Muscle strength and tone normal. SPINE: No scoliosis or deformity SKIN: Incontinence dermatitis present in the perineal area CENTRAL NERVOUS SYSTEM: Awake, but confused No focal deficits, tone is normal in all 4 extremities. - Labs CBC & Chem 7: 05/02/21 08:36 05/02/21 08:36 Labs: Abnormal Lab Results - Last 24 Hours (Table) 05/01/21 05/01/21 05/01/21 Range/Units 06:26 16:33 20:24 RBC (4.30-5.90) m/uL Hgb (13.0-17.5) gm/dL Hct (39.0-53.0) % Plt Count (150-450) k/uL Neutrophils # 0.8 L (1.3-7.7) k/uL Lymphocytes # 0.5 L (1.0-4.8) k/uL Chloride (98-107) mmol/L BUN (9-20) mg/dL Glucose (74-99) mg/dL POC Glucose (mg/dL) 116 H 147 H (75-99) mg/dL 05/02/21 05/02/21 05/02/21 Range/Units 06:16 08:36 08:36 RBC 4.16 L (4.30-5.90) m/uL Hgb 12.1 L (13.0-17.5) gm/dL Hct 37.9 L (39.0-53.0) % Plt Count 67 L (150-450) k/uL Neutrophils # (1.3-7.7) k/uL Lymphocytes # 0.7 L (1.0-4.8) k/uL Chloride 112 H (98-107) mmol/L BUN 39 H (9-20) mg/dL Glucose 113 H (74-99) mg/dL POC Glucose (mg/dL) 157 H (75-99) mg/dL 05/02/21 Range/Units 11:48 RBC (4.30-5.90) m/uL Hgb (13.0-17.5) gm/dL Hct (39.0-53.0) % Plt Count (150-450) k/uL Neutrophils # (1.3-7.7) k/uL Lymphocytes # (1.0-4.8) k/uL Chloride (98-107) mmol/L BUN (9-20) mg/dL Glucose (74-99) mg/dL POC Glucose (mg/dL) 125 H (75-99) mg/dL Microbiology - Last 24 Hours (Table) 04/28/21 17:20 Blood Culture - Preliminary Blood No Growth after 72 hours 04/28/21 17:35 Blood Culture - Preliminary Blood No Growth after 72 hours Assessment and Plan Assessment: 1 Acute COVID-19 infection without evidence of pneumonia on the chest x-ray. Patient was brought into the hospital on 04/28/2021 primarily for evaluation of generalized weakness, anorexia, and dehydration. Was found to be COVID 19 positive. Vaccination status is unknown. Onset of symptoms is unknown. Christy ent is a poor historian. Is currently on 3 L, does not appear to be in any respiratory distress 2 Elevated troponins, cardiology is following, and this is thought to be related to acute kidney failure. Please refer to the cardiology consultation 3 Dehydration related to poor oral intake with acute kidney injury improved with IV hydration 4 History of coronary artery disease 5 Acute urinary tract infection and was suspected remains on ceftriaxone 6 Altered mental status related to acute sepsis, COVID-19 infection, dehydration. Baseline mental status is not known to us 7 Chronic anorexia cachexia syndrome 8 General medical debility 9 Recurrent dysphagia, with recent history of EGD that revealed upper esophageal stricture 10 Former tobacco dependence 11 Anxiety/depression 12 Hypernatremia related to free water deficit, improved at 141 13 Poor overall functional performance based on the above-mentioned multiple comorbidities Plan: The patient was seen and evaluated Stable from the pulmonary standpoint, on 3 L Titrate down the FiO2 as tolerated Continue the current treatment plan Overall prognosis remains guarded The plan is for subacute rehab upon discharge I, the cosigning physician, performed a history & physical examination of the pa boydnt. Lungs sounds with few scattered rhonchi. Maintaining good O2 saturations in the 90s on 3 L/m per nasal cannula. I discussed the assessment and plan of care with my nurse practitioner, Mercy Smyth. I attest to the above note as dictated by her.
--- NOTE | 2021-05-02 15:01 | CDI ---
Documentation Clarification Form Date: 05/02/2021 02:34:52 PM From: Chiara Burkett RN CCDS Admit Date: 04/28/2021 04:48:00 PM Patient Name: Gregg Tuttle Visit Number: [id number] Discharge Date: ATTENTION: The Clinical Documentation Specialists (CDI) and [facility] Coding Staff appreciate your assistance in clarifying documentation. Please respond to the clarification below the line at the bottom and electronically sign. The CDI & [facility] Coding staff will review the response and follow-up if needed. Please note: Queries are made part of the Legal Health Record. If you have any questions, please contact the author of this message via ITS. Dr. Emanuel Berry Sepsis is documented in the Pulmonology Consult, 04/30 and in Pulmonology progress notes, 05/01 & 05/02 of. Additional clarification is requested. History/Risk Factors: 89-year-old male presents to the ED with weakness. Medical Hx: OH, HLD, and dysphagia. H&P, 04/28. Clinical Indicators: Pulmonology Consult, 04/29 Altered mental status related to acute sepsis, COVID- 19 infection, dehydration. VSS: 04/28 B/P 117/72; HR 83; Temp 99.2 F Oral; RR 20; SpO2 95% room air LABS: 04/28 Wbc 3.1; Neutrophils 1.7; Procalcitonin 0.39; Luna Virus Detected A CXR: 04/28 No active cardiopulmonary disease. Treatment: IV Fluids: 04/28 0.9NS 1L bolus x 1. Medication: 04/29 Vitamin C 500mg PO Daily d/cd; 04/30 to current Vitamin C 500mg PO Bid; 04/29 to current Vitamin D3 50 mcg PO Daily; 04/30 to current Zinc 220mg Po Daily. Can you please clarify Sepsis? [ X ] Sepsis POA [ ] Sepsis Ruled Out [ ] Other, please specify [ ] Unable to determine (Template Last Revised: June 2020) MTDD
[2021-05-02 15:53] LABS: ALT 26 U/L (4-49); AST 50 U/L (17-59); Albumin 2.7 g/dL (3.5-5.0); Alkaline Phosphatase 59 U/L (38-126); Bilirubin, Delta 0.2 mg/dL (0.0-0.2); Bilirubin,Unconjugated 0.3 mg/dL (0.0-1.1); LDH 536 U/L (313-618); Total Bilirubin 0.5 mg/dL (0.2-1.3); Total Protein 5.5 g/dL (6.3-8.2)
[2021-05-02 15:57] LABS: INR 1.1 (<1.2); Prothrombin Time 11.5 sec (9.0-12.0)
[2021-05-02 16:32] LABS: Glucose,Whole Blood 134 mg/dL (75-99)
[2021-05-02 20:25] LABS: Glucose,Whole Blood 129 mg/dL (75-99)
[2021-05-03 01:41] LABS: Immunoglobulin M 57.2 mg/dL (40.0-280.0)
[2021-05-03] MEDS: DEXTROSE 5% IN WATER 1,000 ML IV SCH ×2 (04:41→23:59)
[2021-05-03 06:10] LABS: Glucose,Whole Blood 108 mg/dL (75-99)
[2021-05-03] MEDS: INSULIN ASPART (NovoLOG) 100 UNIT/ML VIAL SQ SCH ×4 (06:26→20:43)
[2021-05-03] MEDS: ENOXAPARIN 40 MG/0.4 ML SYRINGE SQ SCH (08:34)
[2021-05-03] MEDS: METOPROLOL TARTRATE 12.5 MG TAB PO SCH ×2 (08:34→21:22)
[2021-05-03] MEDS: ALPRAZolam 0.5 MG TAB PO SCH ×3 (08:35→21:22)
[2021-05-03] MEDS: PANTOPRAZOLE 40 MG TABLET PO SCH (08:35)
[2021-05-03] MEDS: SERTRALINE 50 MG TAB PO SCH (08:35)
[2021-05-03] MEDS: TAMSULOSIN 0.4 MG CAP.ER.24H PO SCH (08:35)
[2021-05-03] MEDS: ZINC SULFATE 220 MG CAP PO SCH (08:35)
[2021-05-03] MEDS: ASCORBIC ACID 500 MG TAB PO SCH ×2 (08:35→21:23)
[2021-05-03] MEDS: CHOLECALCIFEROL 25 MCG (1000 IU) TABLET PO SCH (08:35)
[2021-05-03] MEDS: ASPIRIN 81 MG PO SCH (08:35)
[2021-05-03] MEDS: ISOSORBIDE MONONITRATE ER 30 MG TAB.ER.24H PO SCH (08:35)
[2021-05-03] MEDS: ALBUTEROL HFA INHALER INHALATION SCH ×4 (08:45→20:47)
[2021-05-03 11:17] LABS: Basophils % (A) 0 %; Eosinophils % (A) 0 %; HCT 36.4 % (39.0-53.0); Lymphocytes # (A) 1.1 k/uL (1.0-4.8); Lymphocytes % (A) 30 %; MCH 29.5 pg (25.0-35.0); MCHC 32.9 g/dL (31.0-37.0); MCV 89.9 fL (80.0-100.0); Mean Platelet Volume 10.1; Monocytes # (A) 0.1 k/uL (0-1.0); Monocytes % (A) 4 %; Neutrophils # (A) 2.3 k/uL (1.3-7.7); Neutrophils % (A) 64 %; RBC 4.05 m/uL (4.30-5.90); WBC 3.6 k/uL (3.8-10.6)
[2021-05-03 11:27] LABS: Platelet Count 79 k/uL (150-450)
[2021-05-03 11:36] LABS: ALT 29 U/L (4-49); AST 45 U/L (17-59); African American GFR (CKD) >90 (>60 ml/min/1.73 sqM); Albumin 2.6 g/dL (3.5-5.0); Alkaline Phosphatase 70 U/L (38-126); Anion Gap 5 mmol/L; Blood Urea Nitrogen 30 mg/dL (9-20); Carbon Dioxide 23 mmol/L (22-30); Chloride 111 mmol/L (98-107); Glucose 104 mg/dL (74-99); Non-African American GFR(CKD) 80 (>60 ml/min/1.73 sqM); Potassium 3.6 mmol/L (3.5-5.1); Sodium 139 mmol/L (137-145); Total Bilirubin 0.6 mg/dL (0.2-1.3); Total Protein 5.6 g/dL (6.3-8.2)
[2021-05-03 11:52] LABS: Glucose,Whole Blood 122 mg/dL (75-99)
[2021-05-03 11:58] LABS: Heparin Induced Plt Abs 0.168 OD (<0.4)
--- NOTE | 2021-05-03 13:19 | P.CONS ---
History of Present Illness - Reason for Consult Consult date: 05/02/21 cytopenias Requesting physician: Joanna Oliveira - History of Present Illness This is a 89-year-old white male patient, with complaints of recurrent dysphagia, last recent EGD in March 2021 that revealed upper esophageal stricture, and mild erosive esophagitis, former nicotine dependence, anxiety and depression. On 04/28/2021 presented to ER by EMS primarily for symptoms of weakness that was progressive over several days prior. He has had recent falls at home. He is not able to walk at home, Patient has a caregiver and lives with his family. COVID positive. His chest x-ray normal. Platelets 115K on Admission, today 67K, 2018 platelets 140s. Mild anemia. Normocytic. WBC 1.4 on 04/30, improved today at 4.0. 3.1 on admission. We have been asked to further evaluate for Pancytopenia Review of Systems ROS unobtainable: due to mental status All systems: negative Past Medical History Past Medical History: Cancer, Hearing Disorder / Deafness, Hyperlipidemia, Myocardial Infarction ([place]), Osteoarthritis (OA), Prostate Disorder Additional Past Medical History / Comment(s): recent food stuck in throat came to hospital was removed. frequent falls, prostate cancer Last Myocardial Infarction Date:: unknown History of Any Multi-Drug Resistant Organisms: None Reported Past Surgical History: Joint Replacement Additional Past Surgical History / Comment(s): knee replacement Past Anesthesia/Blood Transfusion Reactions: Unable to Obtain Past Psychological History: Anxiety, Depression Smoking Status: Former smoker Past Alcohol Use History: None Reported Past Drug Use History: None Reported Medications and Allergies Home Medications Medication Instructions Recorded Confirmed Type ALPRAZolam [Xanax] 0.5 mg PO TID 02/17/21 04/28/21 History Sertraline [Zoloft] 150 mg PO DAILY 02/17/21 04/28/21 History Omeprazole 20 mg PO DAILY 04/28/21 04/28/21 History Allergies Allergy/AdvReac Type Severity Reaction Status Date / Time Iodinated Contrast Media Allergy Unknown Verified 04/28/21 18:59 Physical Exam Vitals: Vital Signs Temp Pulse Resp BP Pulse Ox 05/02/21 12:00 58 L 16 129/59 95 05/02/21 08:00 56 L 16 134/61 96 05/02/21 03:30 97.5 F L 54 L 18 130/62 96 05/02/21 00:27 97.1 F L 61 17 110/53 96 05/01/21 20:55 97 F L 63 18 132/62 95 05/01/21 17:00 92 L 05/01/21 16:00 98.2 F 58 L 18 120/58 96 05/01/21 14:00 18 Intake and Output 05/01/21 05/02/21 05/02/21 22:59 06:59 14:59 Intake Total 118 Output Total 175 0 Balance -175 0 118 Intake: Oral 118 Output: Urine 175 0 Other: Voiding Method Indwelling Catheter Indwelling Catheter Indwelling Catheter # Bowel Movements 1 Weight 42.5 kg Frail awakens head NCAT Lungs: Rhonchi Abdomen Soft Ext Edema Bruising and skin break Results CBC & Chem 7: 05/03/21 10:36 05/03/21 10:36 Labs: Abnormal Lab Results - Last 24 Hours (Table) 05/01/21 05/01/21 05/02/21 Range/Units 16:33 20:24 06:16 RBC (4.30-5.90) m/uL Hgb (13.0-17.5) gm/dL Hct (39.0-53.0) % Plt Count (150-450) k/uL Lymphocytes # (1.0-4.8) k/uL Chloride (98-107) mmol/L BUN (9-20) mg/dL Glucose (74-99) mg/dL POC Glucose (mg/dL) 116 H 147 H 157 H (75-99) mg/dL 05/02/21 05/02/21 05/02/21 Range/Units 08:36 08:36 11:48 RBC 4.16 L (4.30-5.90) m/uL Hgb 12.1 L (13.0-17.5) gm/dL Hct 37.9 L (39.0-53.0) % Plt Count 67 L (150-450) k/uL Lymphocytes # 0.7 L (1.0-4.8) k/uL Chloride 112 H (98-107) mmol/L BUN 39 H (9-20) mg/dL Glucose 113 H (74-99) mg/dL POC Glucose (mg/dL) 125 H (75-99) mg/dL Microbiology - Last 24 Hours (Table) 04/28/21 17:20 Blood Culture - Preliminary Blood No Growth after 72 hours 04/28/21 17:35 Blood Culture - Preliminary Blood No Growth after 72 hours Assessment and Plan (1) Pancytopenia Narrative/Plan: Likely secondary to acute inflammatory/infectious process of covid - Blood counts are starting to improvve with WBC increased to 4 today from 1.4 yesterday - Additional work-up for other contributing factors or complications from inflamm process tested - Will await those and in interim monitor daily cbc Current Visit: Yes Status: Acute Code(s): D61.818 - OTHER PANCYTOPENIA SNOMED Code(s): 830341664 (2) COVID-19 Current Visit: Yes Status: Acute Code(s): U07.1 - COVID-19 SNOMED Code(s): 859767220
--- NOTE | 2021-05-03 15:12 | P.PN ---
Subjective Progress Note Date: 05/03/21 Principal diagnosis: Weakness This is a 89-year-old white male patient, with past medical history of recurrent dysphagia, with recent EGD in March 2021 that revealed upper eso phageal stricture, and mild erosive esophagitis, former nicotine dependence, anxiety and depression, who was brought into the emergency department on 04/28/2021 by EMS primarily for symptoms of weakness. Apparently patient has been weak for the past several days. He had sustained a fall at home. He is not able to walk at home, he was with his caregiver a into the ED notes, according to the nursing reports patient lives with his family. Seems to be quite debilitated, quite frail, and there was skin breakdown noted in the groin area related to excoriation possibly secondary to stool and urine incontinence. Patient has had poor appetite. He was found to be COVID positive in the emergency department. His chest x-ray showed clear lungs, no hilar masses, no pleural effusion. Thoracic aorta was atheromatous, heart size was normal, there was no active cardiopulmonary disease. X-ray of the pelvis was obtained in view of his recent fall and did not show any evidence of fever or hip joint fractures. Pelvic ring was intact. Patient had evidence of acute kidney injury and dehydration on his laboratory evaluation, his white blood cell count was 3.1 on admission, his hemoglobin was 14.7, his platelet count was 1:15, INR is 1.1, sodium is 143, his potassium was 3.4, chloride is 107, CO2 is 25, BUN of 63, creatinine is 1.61. His ferritin level is 627, AST was 84, the rest of his LFTs were within normal limits, LDH is 591, within normal limits, patient did have troponin elevation at 0.206, 0.183, and 0.193. Pro-calcitonin level was 0.39, urinalysis showed evidence of acute urinary tract infection, urine culture is still pending at this time. Clinically patient seemed very dehydrated, however was not complaining of any pulmonary symptoms, no cough, no difficulty breathing, room air pulse ox was 92%, his been hemodynamically stable. Lung sounds are essentially clear to auscultation. Cardiology consultation was requested in view of elevated troponins please refer to their consultation notes. Patient is a very poor historian, and according to the nursing staff he seems to be a bit more confused today compared to yesterday. Apparently patient has had a significant weight loss, and his dentures do not fit right and are too large. Currently does not appear to be in any respiratory distress. The patient is seen today 05/01/2021 in follow-up on the regular medical floor. He is currently sitting up in bed. Awake. Tolerating applesauce. Maintaining O2 saturation in the mid 90s on 3 L/m per nasal cannula. He's been afebrile. Hemodynamically stable. Blood cultures reveal no growth. White count 1.4. Hemoglobin 12.2. Platelet count 63,000. Sodium 144. Potassium 4.2. Creatinine 0.87. Glucose 160. Luna virus by PCR positive. Pro-calcitonin 0.39. He is continued on Lovenox, vitamin supplements. Antibiotics in the form of ceftriaxone. On 05/03/2021 patient seen in follow-up on selective care unit, he is resting comfortably in bed, does not appear to be in any acute distress, certainly seems more awake and conversant compared to his admission level of consciousness, he is answering simple questions, he denies any acute distress, denies any difficulty breathing, he is on 2 L of oxygen pulse ox is 93%. No worsening cough or dyspnea, lung sounds reveal a few scattered crackles, no wheezing, vital signs have been stable. His labs have been reviewed, his white blood cell count is 3.6, hemoglobin is 12.0, sodium is 139, potassium 3.6, chloride is 111, B1 is 30 creatinine 0.80. Patient was rehydrated, his renal function has improved. Patient is currently on Rocephin for empiric antibiotic coverage, he is on D5W at 50 ML per hour, he is on Lovenox 40 mg daily, his urine and blood cultures have been negative thus far. Vital signs have been stable, clinically seems to be improving. Objective - Vital Signs Vital signs: Vital Signs Temp 96.6 F L 05/03/21 08:00 Pulse 66 05/03/21 12:00 Resp 16 05/03/21 12:00 BP 98/52 05/03/21 12:00 Pulse Ox 93 L 05/03/21 12:00 Intake & Output 05/02/21 05/03/21 05/03/21 18:59 06:59 18:59 Intake Total 118 240 Output Total 850 Balance -732 240 Weight 42.5 kg Intake: Oral 118 240 Output: Urine 850 Other: Voiding Method Indwelling Catheter Indwelling Catheter Indwelling Catheter # Bowel Movements 1 - Exam GENERAL EXAM: Alert, responsive 89-year-old very frail looking very thin built white male, appears to be in no acute distress, the patient is a poor historian HEAD: Normocephalic/atraumatic. EYES: Normal reaction of pupils, equal size. Conjunctiva pink, sclera white. NOSE: Clear with pink turbinates. MOUTH: Patient has dentures that are too large and ill-fitting, and are half- coming out of his mouth THROAT: No erythema or exudates. NECK: No masses, no JVD, no thyroid enlargement, no adenopathy. CHEST: No chest wall deformity. Symmetrical expansion. LUNGS: Equal air entry with no crackles, wheeze, rhonchi or dullness. CVS: Regular rate and rhythm, normal S1 and S2, no gallops, no murmurs, no rubs ABDOMEN: Soft, nontender. No hepatosplenomegaly, normal bowel sounds, no guarding or rigidity. EXTREMITIES: No clubbing, no edema, no cyanosis, 2+ pulses and upper and lower extremities. MUSCULOSKELETAL: Muscle strength and tone normal. SPINE: No scoliosis or deformity SKIN: Incontinence dermatitis present in the perineal area CENTRAL NERVOUS SYSTEM: Awake, No focal deficits, tone is normal in all 4 extremities. - Labs CBC & Chem 7: 05/03/21 10:36 05/03/21 10:36 Labs: Abnormal Lab Results - Last 24 Hours (Table) 05/02/21 05/02/21 05/02/21 Range/Units 15:31 15:31 15:31 WBC (3.8-10.6) k/uL RBC (4.30-5.90) m/uL Hgb (13.0-17.5) gm/dL Hct (39.0-53.0) % Plt Count (150-450) k/uL ESR 20 H (0-15) mm/hr APTT 35.0 H (22.0-30.0) sec Chloride (98-107) mmol/L BUN (9-20) mg/dL Glucose (74-99) mg/dL POC Glucose (mg/dL) (75-99) mg/dL Calcium (8.4-10.2) mg/dL Total Protein 5.5 L (6.3-8.2) g/dL Albumin 2.7 L (3.5-5.0) g/dL Albumin (PEP) (3.80-4.90) g/dL Qsyzz-7-Hufgdpect (0.10-0.40) g/dL Nylns-7-Geqyqidpi (0.60-1.00) g/dL Beta Globulins (0.60-1.30) g/dL Gamma Globulins (0.70-1.50) g/dL IgA (60.0-350.0) mg/dL LILI Screen (NEGATIVE) 05/02/21 05/02/21 05/02/21 Range/Units 15:31 15:31 15:31 WBC (3.8-10.6) k/uL RBC (4.30-5.90) m/uL Hgb (13.0-17.5) gm/dL Hct (39.0-53.0) % Plt Count (150-450) k/uL ESR (0-15) mm/hr APTT (22.0-30.0) sec Chloride (98-107) mmol/L BUN (9-20) mg/dL Glucose (74-99) mg/dL POC Glucose (mg/dL) (75-99) mg/dL Calcium (8.4-10.2) mg/dL Total Protein (6.3-8.2) g/dL Albumin (3.5-5.0) g/dL Albumin (PEP) 0.00 L (3.80-4.90) g/dL Ofwyn-1-Gmwxsxxro 0.00 L (0.10-0.40) g/dL Kfkqu-7-Ywexlseur 0.00 L (0.60-1.00) g/dL Beta Globulins 0.00 L (0.60-1.30) g/dL Gamma Globulins 0.00 L (0.70-1.50) g/dL IgA 517.0 H (60.0-350.0) mg/dL LILI Screen POSITIVE A (NEGATIVE) 05/02/21 05/02/21 05/03/21 Range/Units 16:27 20:24 06:08 WBC (3.8-10.6) k/uL RBC (4.30-5.90) m/uL Hgb (13.0-17.5) gm/dL Hct (39.0-53.0) % Plt Count (150-450) k/uL ESR (0-15) mm/hr APTT (22.0-30.0) sec Chloride (98-107) mmol/L BUN (9-20) mg/dL Glucose (74-99) mg/dL POC Glucose (mg/dL) 134 H 129 H 108 H (75-99) mg/dL Calcium (8.4-10.2) mg/dL Total Protein (6.3-8.2) g/dL Albumin (3.5-5.0) g/dL Albumin (PEP) (3.80-4.90) g/dL Jogrq-0-Asuvdinxj (0.10-0.40) g/dL Bjoll-9-Okpahzvwm (0.60-1.00) g/dL Beta Globulins (0.60-1.30) g/dL Gamma Globulins (0.70-1.50) g/dL IgA (60.0-350.0) mg/dL LILI Screen (NEGATIVE) 05/03/21 05/03/21 05/03/21 Range/Units 10:36 10:36 11:44 WBC 3.6 L (3.8-10.6) k/uL RBC 4.05 L (4.30-5.90) m/uL Hgb 12.0 L (13.0-17.5) gm/dL Hct 36.4 L (39.0-53.0) % Plt Count 79 L (150-450) k/uL ESR (0-15) mm/hr APTT (22.0-30.0) sec Chloride 111 H (98-107) mmol/L BUN 30 H (9-20) mg/dL Glucose 104 H (74-99) mg/dL POC Glucose (mg/dL) 122 H (75-99) mg/dL Calcium 8.0 L (8.4-10.2) mg/dL Total Protein 5.6 L (6.3-8.2) g/dL Albumin 2.6 L (3.5-5.0) g/dL Albumin (PEP) (3.80-4.90) g/dL Lxnaz-7-Thlwlqhmn (0.10-0.40) g/dL Aekcd-4-Vhghvoaso (0.60-1.00) g/dL Beta Globulins (0.60-1.30) g/dL Gamma Globulins (0.70-1.50) g/dL IgA (60.0-350.0) mg/dL LILI Screen (NEGATIVE) Microbiology - Last 24 Hours (Table) 04/28/21 17:20 Blood Culture - Preliminary Blood No Growth after 96 hours 04/28/21 17:35 Blood Culture - Preliminary Blood No Growth after 96 hours Assessment and Plan Plan: Assessment: #1. Acute COVID-19 infection without evidence of pneumonia on the chest x-ray. Patient was brought into the hospital on 04/28/2021 primarily for evaluation of generalized weakness, anorexia, and dehydration. Was found to be COVID 19 positive. Vaccination status is unknown. Onset of symptoms is unknown. Patient is a poor historian. Is currently on room air, does not appear to be in any respiratory distress #2. Elevated troponins, cardiology is following, and this is thought to be related to acute kidney failure. Please refer to the cardiology consultation #3. Dehydration related to poor oral intake with acute kidney injury improved with IV hydration, improved with IV hydration #4. History of coronary artery disease #5. Acute urinary tract infection #6. Altered mental status related to acute sepsis, COVID-19 infection, dehydration. Baseline mental status is not known to us #7. Chronic anorexia cachexia syndrome #8. General medical debility #9. Recurrent dysphagia, with recent history of EGD that revealed upper esophageal stricture #10. Former tobacco dependence #11. Anxiety/depression #12. Hypernatremia related to free water deficit, resolved with IV hydration Plan: Patient is breathing comfortably Patient denies any worsening dyspnea or cough Patient is on 2-3 L of supplemental oxygen however his oxygenation seems to be stable, and his subpleural oxygen could be weaned down and weaned completely off Continue supportive medical treatment We'll continue to follow I performed a history & physical examination of the patient and discussed their management with my nurse practitioner, Felicita Anaya. I reviewed the nurse practitioner's note and agree with the documented findings and plan of care. Lung sounds are positive for diffuse wheezes throughout the lung anna. The findings and the impression was discussed with the patient. I attest to the documentation by the nurse practitioner. Time with Patient: Less than 30
[2021-05-03 15:15] LABS: % Iron Saturation 12.18 (15.00-50.00); Iron 23 ug/dL (65-175); Total Iron Binding Capacity 190 ug/dL (228-460)
[2021-05-03 15:35] LABS: Free Kappa Lt Chain Qnt, Serum 6.22 mg/dL (0.33-1.94)
--- NOTE | 2021-05-03 16:20 | P.PN ---
Subjective Progress Note Date: 05/03/21 This is an 89-year-old gentleman admitted with acute covid infection,elevated troponins, acute renal failure, hypokalemia, generalized weakness and multiple other medical issues. Patient also has a history of esophageal obstruction ,scheduled for swallow evaluation as per speech therapy. Guzman catheter had been inserted for urinary retention. Sitting up in bed, consumed about 40% of breakfast. Ill fitting dentures, currently out of his mouth. Maintained on IV antibiotics of ceftriaxone, Covid cocktail, pleasantly confused with significant weakness. Renal function improving with creatinine decreased to 0.98. Evaluated by cardiology, recommendations noted, echo pending. Telemetry reported sinus r hythm. Afebrile, WBC 3. Maintaining O2 sats in the low 90s on room air. 05/01/2021 maintained on Covid cocktail , ceftriaxone . Increased lethargy.Echo reported EF 40-45% with posterior hypokinesis,telemetry reporting bradycardia throughout the night, beta augustus held, heart rate currently 50 to 60s. Creatinine trending down to 0.87. Maintaining O2 sats in the 90s on 3 L nasal cannula .Afebrile, preliminary blood cultures reporting no growth in 48 hours. 05/02/2021 Continues on ceftriaxone, Covid cocktail .labs pending. Pancytopenia, decreasing platelets, hemoglobin, WBC. Lethargic, sleepy. Afebrile. Preliminary blood cultures no growth at 72 hours. Diet intake averaging about 25%. Renal function stable. 05/03/2021 maintaining O2 sats in the 90s on room air. Maintained on Covid cocktail. Labs pending.Hematology consult in place, recommendations pending. Afebrile. Denies any chest pain, palpitations or increased shortness of breath. Objective - Vital Signs Vital signs: Vital Signs Temp 96.6 F L 05/03/21 08:00 Pulse 66 05/03/21 12:00 Resp 16 05/03/21 12:00 BP 98/52 05/03/21 12:00 Pulse Ox 93 L 05/03/21 12:00 Intake & Output 05/02/21 05/03/21 05/03/21 18:59 06:59 18:59 Intake Total 118 240 Output Total 850 Balance -732 240 Weight 42.5 kg Intake: Oral 118 240 Output: Urine 850 Other: Voiding Method Indwelling Catheter Indwelling Catheter Indwelling Catheter # Bowel Movements 1 - Exam PHYSICAL EXAM: VITAL SIGNS: [As above] GENERAL: Sitting up in bed, alert and oriented 2, weak HEENT: Conjunctivae normal. eyes normal. Oral mucosa moist NECK: Supple, No JVD. CARDIOVASCULAR: S1, S2 regular. No murmur. RESPIRATION: Breath sounds diminished in the bases. No rhonchi or crackles. ABDOMEN: Soft, nontender . No guarding. no masses palpable. Positive Bowel sounds. LEGS: No edema. no swelling NERVOUS SYSTEM: Limited exam -Cranial N 2-12 grossly normal. Diffuse weakness, No focal deficits. Skin: Unstageable coccyx pressure ulcer with eschar, refer to sizing documented per wound care team. - Labs CBC & Chem 7: 05/03/21 10:36 05/03/21 10:36 Labs: Abnormal Lab Results - Last 24 Hours (Table) 05/02/21 05/02/21 05/02/21 Range/Units 15:31 15:31 15:31 WBC (3.8-10.6) k/uL RBC (4.30-5.90) m/uL Hgb (13.0-17.5) gm/dL Hct (39.0-53.0) % Plt Count (150-450) k/uL ESR 20 H (0-15) mm/hr Chloride (98-107) mmol/L BUN (9-20) mg/dL Glucose (74-99) mg/dL POC Glucose (mg/dL) (75-99) mg/dL Calcium (8.4-10.2) mg/dL Iron 23 L (65-175) ug/dL TIBC 190 L (228-460) ug/dL % Saturation 12.18 L (15.00-50.00) Transferrin 136.0 L (204.0-354.0) mg/dL Total Protein (6.3-8.2) g/dL Albumin (3.5-5.0) g/dL Albumin (PEP) 0.00 L (3.80-4.90) g/dL Tngaz-6-Atpqfrlcn 0.00 L (0.10-0.40) g/dL Zohzz-5-Ugxmlkopw 0.00 L (0.60-1.00) g/dL Beta Globulins 0.00 L (0.60-1.30) g/dL Gamma Globulins 0.00 L (0.70-1.50) g/dL Vitamin B12 1106.0 H (200.0-944.0) pg/mL IgA (60.0-350.0) mg/dL LILI Screen (NEGATIVE) Free Isola LC, Quant 6.22 H (0.33-1.94) mg/dL Free Lambda LC, Quant 4.90 H (0.57-2.63) mg/dL 05/02/21 05/02/21 05/02/21 Range/Units 15:31 15:31 16:27 WBC (3.8-10.6) k/uL RBC (4.30-5.90) m/uL Hgb (13.0-17.5) gm/dL Hct (39.0-53.0) % Plt Count (150-450) k/uL ESR (0-15) mm/hr Chloride (98-107) mmol/L BUN (9-20) mg/dL Glucose (74-99) mg/dL POC Glucose (mg/dL) 134 H (75-99) mg/dL Calcium (8.4-10.2) mg/dL Iron (65-175) ug/dL TIBC (228-460) ug/dL % Saturation (15.00-50.00) Transferrin (204.0-354.0) mg/dL Total Protein (6.3-8.2) g/dL Albumin (3.5-5.0) g/dL Albumin (PEP) (3.80-4.90) g/dL Vavth-6-Tasgyvsiy (0.10-0.40) g/dL Bziaq-8-Pictgxtbo (0.60-1.00) g/dL Beta Globulins (0.60-1.30) g/dL Gamma Globulins (0.70-1.50) g/dL Vitamin B12 (200.0-944.0) pg/mL IgA 517.0 H (60.0-350.0) mg/dL LILI Screen POSITIVE A (NEGATIVE) Free Isola LC, Quant (0.33-1.94) mg/dL Free Lambda LC, Quant (0.57-2.63) mg/dL 05/02/21 05/03/21 05/03/21 Range/Units 20:24 06:08 10:36 WBC 3.6 L (3.8-10.6) k/uL RBC 4.05 L (4.30-5.90) m/uL Hgb 12.0 L (13.0-17.5) gm/dL Hct 36.4 L (39.0-53.0) % Plt Count 79 L (150-450) k/uL ESR (0-15) mm/hr Chloride (98-107) mmol/L BUN (9-20) mg/dL Glucose (74-99) mg/dL POC Glucose (mg/dL) 129 H 108 H (75-99) mg/dL Calcium (8.4-10.2) mg/dL Iron (65-175) ug/dL TIBC (228-460) ug/dL % Saturation (15.00-50.00) Transferrin (204.0-354.0) mg/dL Total Protein (6.3-8.2) g/dL Albumin (3.5-5.0) g/dL Albumin (PEP) (3.80-4.90) g/dL Aajix-1-Rtklpyrgz (0.10-0.40) g/dL Fhyys-9-Nlodcqpwd (0.60-1.00) g/dL Beta Globulins (0.60-1.30) g/dL Gamma Globulins (0.70-1.50) g/dL Vitamin B12 (200.0-944.0) pg/mL IgA (60.0-350.0) mg/dL LILI Screen (NEGATIVE) Free Isola LC, Quant (0.33-1.94) mg/dL Free Lambda LC, Quant (0.57-2.63) mg/dL 05/03/21 05/03/21 Range/Units 10:36 11:44 WBC (3.8-10.6) k/uL RBC (4.30-5.90) m/uL Hgb (13.0-17.5) gm/dL Hct (39.0-53.0) % Plt Count (150-450) k/uL ESR (0-15) mm/hr Chloride 111 H (98-107) mmol/L BUN 30 H (9-20) mg/dL Glucose 104 H (74-99) mg/dL POC Glucose (mg/dL) 122 H (75-99) mg/dL Calcium 8.0 L (8.4-10.2) mg/dL Iron (65-175) ug/dL TIBC (228-460) ug/dL % Saturation (15.00-50.00) Transferrin (204.0-354.0) mg/dL Total Protein 5.6 L (6.3-8.2) g/dL Albumin 2.6 L (3.5-5.0) g/dL Albumin (PEP) (3.80-4.90) g/dL Phyhj-4-Yfluxahpl (0.10-0.40) g/dL Hxsmk-2-Ipltvpsop (0.60-1.00) g/dL Beta Globulins (0.60-1.30) g/dL Gamma Globulins (0.70-1.50) g/dL Vitamin B12 (200.0-944.0) pg/mL IgA (60.0-350.0) mg/dL LILI Screen (NEGATIVE) Free Isola LC, Quant (0.33-1.94) mg/dL Free Lambda LC, Quant (0.57-2.63) mg/dL Microbiology - Last 24 Hours (Table) 04/28/21 17:20 Blood Culture - Preliminary Blood No Growth after 96 hours 04/28/21 17:35 Blood Culture - Preliminary Blood No Growth after 96 hours Assessment and Plan Assessment: Acute COVID infection Elevated troponins,secondary to acute renal failure, not suggestive of ACS, cardiology following Dehydration, poor oral intake Acute renal failure, secondary to the above Acute metabolic encephalopathy secondary to the above Pancytopenia, possibly related to COVID Coccyx pressure ulcer, unstageable, present on admission, chronic-patient reports present X 3 months. Generalized weakness, failure to thrive in a patient with OA, Gait dysfunction, history of recent falls Moderate malnutrition, BMI 15.8 History of esophageal obstruction CAD, history of [place] Acute UTI ruled out, culture negative History of prostate cancer Former nicotine dependence Anxiety Depression Plan:Continue on current medication regime ,monitoring and symptomatic treatment. Covid Cocktail. Wound care as per wound care team. PT OT. Discharge planning in progress to subacute rehab. pending hematology recommendations, pulmonary clearance. The impression and plan of care has been dictated as directed. : I performed a history and examination of this patient, discussed the same with the dictator. I agree with the dictator's note ,documented as a scribe. Any additional findings or plans will be noted.
[2021-05-03 16:42] LABS: Rheumatoid Factor, Qnt <10 IU/mL (0-15)
[2021-05-03 16:55] LABS: Glucose,Whole Blood 156 mg/dL (75-99)
[2021-05-03 20:36] LABS: Glucose,Whole Blood 158 mg/dL (75-99)
[2021-05-04 06:11] LABS: Methylmalonic Acid 0.48 umol/L (<0.40)
[2021-05-04 06:20] LABS: Glucose,Whole Blood 95 mg/dL (75-99)
[2021-05-04] MEDS: INSULIN ASPART (NovoLOG) 100 UNIT/ML VIAL SQ SCH ×2 (06:22→12:10)
[2021-05-04 07:50] VITALS: BP 144/77; PULSE 69; RESP 18; TEMP 97.8
[2021-05-04] MEDS: ALBUTEROL HFA INHALER INHALATION SCH ×2 (07:56→12:06)
[2021-05-04] MEDS: ZINC SULFATE 220 MG CAP PO SCH (09:19)
[2021-05-04] MEDS: PANTOPRAZOLE 40 MG TABLET PO SCH (09:19)
[2021-05-04] MEDS: ENOXAPARIN 40 MG/0.4 ML SYRINGE SQ SCH (09:19)
[2021-05-04] MEDS: TAMSULOSIN 0.4 MG CAP.ER.24H PO SCH (09:19)
[2021-05-04] MEDS: CHOLECALCIFEROL 25 MCG (1000 IU) TABLET PO SCH (09:19)
[2021-05-04] MEDS: ASCORBIC ACID 500 MG TAB PO SCH (09:19)
[2021-05-04] MEDS: ASPIRIN 81 MG PO SCH (09:19)
[2021-05-04] MEDS: METOPROLOL TARTRATE 12.5 MG TAB PO SCH (09:19)
[2021-05-04] MEDS: ISOSORBIDE MONONITRATE ER 30 MG TAB.ER.24H PO SCH (09:19)
[2021-05-04] MEDS: SERTRALINE 50 MG TAB PO SCH (09:19)
[2021-05-04] MEDS: ALPRAZolam 0.5 MG TAB PO SCH (09:19)
--- NOTE | 2021-05-04 10:58 | P.DS ---
Providers Date of admission: 04/28/21 16:48 Expected date of discharge: 05/04/21 Attending physician: Emanuel Berry Consults: 04/29/21 16:01 Consult Physician Routine Consulting Provider: Miguel Sifuentes Consult Reason/Comments: COVID 19 infection Do you want consulting provider notified?: Yes 05/02/21 11:15 Consult Physician Routine Consulting Provider: Jonathan Burrows Consult Reason/Comments: Pancytopenia Do you want consulting provider notified?: Yes Primary care physician: Emanuel Berry Hospital Course: Acute COVID infection Elevated troponins,secondary to acute renal failure, not suggestive of ACS, cardiology following Dehydration, poor oral intake Acute renal failure, secondary to the above Acute metabolic encephalopathy secondary to the above Pancytopenia, suspect related to COVID, hematology following Coccyx pressure ulcer, unstageable, present on admission, chronic-patient reports present X 3 months. Generalized weakness, failure to thrive in a patient with OA, Gait dysfunction, history of recent falls Moderate malnutrition, BMI 15.8 History of esophageal obstruction CAD, history of AR Acute UTI ruled out, culture negative History of prostate cancer Former nicotine dependence Anxiety Depression Hospital course:This is an 89-year-old gentleman admitted with acute covid infection,elevated troponins, acute renal failure, hypokalemia, generalized weakness and multiple other medical issues. Patient also has a history of esophageal obstruction ,scheduled for swallow evaluation as per speech therapy. Guzman catheter had been inserted for urinary retention. Sitting up in bed, consumed about 40% of breakfast. Ill fitting dentures, currently out of his mouth. Maintained on IV antibiotics of ceftriaxone, Covid cocktail, pleasantly confused with significant weakness. Renal function improving with creatinine decreased to 0.98. Evaluated by cardiology, recommendations noted, echo pending. Telemetry reported sinus rhythm. Afebrile, WBC 3. Maintaining O2 sats in the low 90s on room air. 05/01/2021 maintained on Covid cocktail , ceftriaxone . Increased lethargy.Echo reported EF 40-45% with posterior hypokinesis,telemetry reporting bradycardia throughout the night, beta augustus held, heart rate currently 50 to 60s. Creatinine trending down to 0.87. Maintaining O2 sats in the 90s on 3 L nasal cannula .Afebrile, preliminary blood cultures reporting no growth in 48 hours. 05/02/2021 Continues on ceftriaxone, Covid cocktail .labs pending. Pancytopenia, decreasing platelets, hemoglobin, WBC. Lethargic, sleepy. Afebrile. Preliminary blood cultures no growth at 72 hours. Diet intake averaging about 25%. Renal function stable. 05/03/2021 maintaining O2 sats in the 90s on room air. Maintained on Covid cocktail. Labs pending.Hematology consult in place, recommendations pending. Afebrile. Denies any chest pain, palpitations or increased shortness of breath. Significant clinical improvement. Maintaining O2 sats in the 90s alternating between room air and 2 L nasal cannula. Afebrile. Patient will be discharged today to subacute rehab.today in a stable condition with guarded prognosis pending final DC recommendations and clearance per hematology and pulmonary. Denies any chest pain, palpitations or increasing shortness of breath. The impression and plan of care has been dictated as directed. : I performed a history and examination of this patient, discussed the same with the dictator. I agree with the dictator's note ,documented as a scribe. Any additional findings or plans will be noted. Patient Condition at Discharge: Stable Plan - Discharge Summary Discharge Rx Participant: Yes New Discharge Prescriptions: No Action ALPRAZolam [Xanax] 0.5 mg PO TID Omeprazole 20 mg PO DAILY Sertraline [Zoloft] 150 mg PO DAILY Discharge Medication List ALPRAZolam [Xanax] 0.5 mg PO TID 02/17/21 [History] Sertraline [Zoloft] 150 mg PO DAILY 02/17/21 [History] Omeprazole 20 mg PO DAILY 04/28/21 [History] Follow up Appointment(s)/Referral(s): Emanuel Berry DO [Primary Care Provider] - 1 Week (After DC from subacute rehab) Teodora Tan NPC [Nurse Practitioner] - 1 Week (Wound care center) Arnulfo Friedman MD [STAFF PHYSICIAN] - 1 Week
[2021-05-04 11:26] VITALS: BMI 11.8
[2021-05-04 11:59] LABS: Glucose,Whole Blood 139 mg/dL (75-99)
[2021-05-09 19:54] LABS: ANA Pattern Homogeneous
== END 2021-05-04 13:33 | DRG 871 ==
LOC: EC 14:57 → 3SCARD 16:48
PROVIDERS: ADMIT Family Medicine; ATTEND Family Medicine
DX: A41.89 Other specified sepsis (principal); U07.1 COVID-19; G93.41 Metabolic encephalopathy; R64 Cachexia; D61.818 Other pancytopenia; E44.0 Moderate protein-calorie malnutrition; Z68.1 Body mass index [BMI] 19.9 or less, adult; E87.0 Hyperosmolality and hypernatremia; N17.9 Acute kidney failure, unspecified; R13.10 Dysphagia, unspecified; R62.7 Adult failure to thrive; R29.6 Repeated falls; Z91.81 History of falling; E86.0 Dehydration; E78.5 Hyperlipidemia, unspecified; K22.2 Esophageal obstruction; E87.6 Hypokalemia; F32.A Depression, unspecified; F41.9 Anxiety disorder, unspecified; H91.90 Unspecified hearing loss, unspecified ear; I25.10 Atherosclerotic heart disease of native coronary artery without angina pectoris; I25.2 Old myocardial infarction; L89.150 Pressure ulcer of sacral region, unstageable; L89.300 Pressure ulcer of unspecified buttock, unstageable; Z98.890 Other specified postprocedural states; Z79.899 Other long term (current) drug therapy; Z85.46 Personal history of malignant neoplasm of prostate; Z87.19 Personal history of other diseases of the digestive system; Z87.891 Personal history of nicotine dependence; Z96.659 Presence of unspecified artificial knee joint
CPT/HCPCS: 36415; 71046; 72170; 80048; 80053; 80061; 80076; 81001; 82607; 82728; 82746; 82747; 82784; 83010; 83540; 83550; 83605; 83615; 83735; 83883; 83921; 84145; 84165; 84484; 85025; 85610; 85652; 85730; 86022; 86038; 86039; 86140; 86334; 86431; 87040; 87086; 87635; 93005; 93308; 94640; 94760; 99285